=== PATIENT | male | born 1965 | race Caucasian/White ===

== ENCOUNTER 2016-04-23 09:14 | Emergency (ER) ==
[2016-04-23 09:14] VITALS: BMI 24.6
[2016-04-23 09:18] VITALS: BP 129/82; TEMP 96.9
--- NOTE | 2016-04-23 09:39 | ED.PDOC ---
General ED Provider: Dr. TERESA OTERO Chief Complaint: Fall Stated Complaint: right knee pain Time Seen by Physician: 09:14 (blunt trauma right knee 1 day ago ) Mode of Arrival: Walk-In Information Source: Patient Exam Limitations: No limitations Nursing and Triage Documentation Reviewed and Agree: Yes Musculoskeletal Complaint Exam - Knee Pain Complaint/Exam Mechanism of Injury: Reports: Trauma Onset/Duration: fall 1 day ago Symptoms Are: Still present Onset of Pain: Reports: Immediate Initial Severity: Moderate Current Severity: Moderate Character: Reports: Aching Alleviating: Reports: Rest, Position Aggravating: Reports: Movement, Weight bearing Associated Signs and Symptoms: Denies: Swelling, Redness, Bruising, Fever, Weakness, Numbness, Tingling Able to Bear Weight: Yes Gout Risk Factors: Reports: >40 years old Knee Findings: Absent: Swelling, Ecchymosis, Abnormal contour Tenderness: Present: Pre-patellar Marquis Test Positive: No Shaun Test Positive: No Differential Diagnoses: Closed Fracture Review of Systems - Review Of Systems Constitutional: Reports: No symptoms Eyes: Reports: No symptoms Ears, Nose, Mouth, Throat: Reports: No symptoms Respiratory: Reports: No symptoms Cardiac: Reports: No symptoms GI: Reports: No symptoms : Reports: No symptoms Musculoskeletal: Reports: Joint pain (right knee pain) Skin: Reports: No symptoms Neurological: Reports: No symptoms Endocrine: Reports: No symptoms Hematologic/Lymphatic: Reports: No symptoms All Other Systems: Reviewed and Negative Past Medical History - Past Medical History Previously Healthy: Yes Endocrine: Reports: None Cardiovascular: Reports: None Respiratory: Reports: None Hematological: Reports: None Gastrointestinal: Reports: None Genitourinary: Reports: None Neuro/Psych: Reports: None Musculoskeletal: Reports: None Cancer: Reports: None Other Pertinent Past Medical History: sx KIDNEY, BACK, RIGHT HAND X 5, - Surgical History General Surgical History: Reports: None - Family History Family History: Reports: Unknown - Social History Smoking Status: Current every day smoker Hx Substance Use: No Alcohol Screening: None - Immunizations Tetanus Shot up to Date: Yes Physical Exam - Physical Exam Appearance: Well-appearing, No pain distress, Well-nourished Eyes: LUNA, EOMI, Conjunctiva clear ENT: Ears normal, Nose normal, Oropharynx normal Respiratory: Airway patent, Breath sounds clear, Breath sounds equal, Respirations nonlabored Cardiovascular: RRR, Pulses normal, No rub, No murmur GI/: Soft, Nontender, No masses, Bowel sounds normal, No Organomegaly Musculoskeletal: Normal strength, ROM intact, No edema, No calf tenderness Skin: Warm, Dry, Normal color Neurological: Sensation intact, Motor intact, Reflexes intact, Cranial nerves intact, Alert, Oriented Psychiatric: Affect appropriate, Mood appropriate Critical Care Note - Critical Care Note Total Time (mins): 0 Course - Course Orders, Labs, Meds: Orders Category Date Time Status KNEE, RIGHT 4 VIEWS Stat RADS 04/23/16 09:36 Ordered Vital Signs: Temp Pulse Resp BP Pulse Ox 04/23/16 09:14 96.9 F L 100 H 20 129/82 96 Departure - Departure Time of Disposition: 11:00 Disposition: HOME SELF-CARE Discharge Problem: Knee pain Qualifiers: Laterality: right Chronicity: acute Qualifier Code: (M25.561) Pain in right knee Instructions: Arthralgia (ED), Knee Pain (ED) Condition: Good Pt referred to PMD for follow-up: No Additional Instructions: Please call your Family Physician as soon as possible to schedule a follow-up appointment. Allergies/Adverse Reactions: Allergies oxycodone HCl [From Percocet] Adverse Reaction (Verified 11/07/15 19:58) Penicillins Adverse Reaction (Verified 11/07/15 19:58) propoxyphene napsylate [From Darvocet-N 100] Adverse Reaction (Verified 19:58) Home Medications: Ambulatory Orders Metformin HCl 500 mg PO BID 06/08/13
--- NOTE | 2016-04-23 10:05 | DI ---
EXAM: Views of the right knee HISTORY: Pain TECHNIQUE: AP lateral, oblique and sunrise views of the right knee were obtained. FINDINGS: No acute fractures are seen. The joint spaces are normal. The patella is seen in good p osition. There is no joint effusion. IMPRESSION: No acute abnormalities are seen within the right knee.
== END 2016-04-23 10:14 | disposition home or self-care (01) ==
LOC: ED 09:14
DX: M25.561 Pain in right knee (principal); W22.8XXA Striking against or struck by other objects, initial encounter; F17.210 Nicotine dependence, cigarettes, uncomplicated
CPT/HCPCS: 99283

== ENCOUNTER 2016-05-18 14:03 | Outpatient (CLI) ==
[2016-05-18 17:32] LABS: BASOPHILS # (AUTO) 0.1 K/uL (0-0.2); BASOPHILS % (AUTO) 0.5 % (0.0-3.0); EOSINOPHILS # (AUTO) 0.2 K/ul (0.0-0.7); EOSINOPHILS % (AUTO) 1.8 % (0.0-7.0); HEMOGLOBIN 18.4 g/dl (14.0-18.0); IMMATURE GRANULOCYTE % (AUTO) 0.2 % (0.0-5.0); LYMPHOCYTES # (AUTO) 1.9 K/uL (0.60-3.4); LYMPHOCYTES % (AUTO) 18.8 (10.0-50.0); MEAN CORPUSCULAR HEMOGLOBIN 31.8 pg (27.0-31.0); MEAN CORPUSCULAR HGB CONC 34.7 (31.8-35.4); MEAN CORPUSCULAR VOLUME 91.5 fl (80.0-94.0); MONOCYTES # (AUTO) 0.5 K/uL (0.4-2.0); MONOCYTES % (AUTO) 5.2 (0-10); NEUTROPHILS # (AUTO) 7.3 K/ul (2.0-6.9); NEUTROPHILS % (AUTO) 73.5; PLATELET COUNT 194 10^3/uL (140-440); RED BLOOD COUNT 5.79 10^6/ul (4.70-6.10); WHITE BLOOD COUNT 9.92 K/ul (4.2-10.2)
[2016-05-18 17:59] LABS: ALBUMIN 4.5 g/dL (3.4-5.0); ALBUMIN/GLOBULIN RATIO 1.29; ANION GAP 17.5; BILIRUBIN,TOTAL 0.61 mg/dL (0.00-1.20); BUN/CREATININE RATIO 15.9; CHOL/HDL RATIO 3.8 (4.5-6.4); CREATININE 0.88 mg/dL (0.60-1.10); POTASSIUM 3.5 mmol/L (3.5-5.1)
== END 2016-05-18 14:04 | disposition home or self-care (01) ==
LOC: LAB 14:03
PROVIDERS: ATTEND Nurse Practitioner Family
DX: E78.5 Hyperlipidemia, unspecified (principal); E11.9 Type 2 diabetes mellitus without complications
CPT/HCPCS: 36415; 80053; 80061; 83036; 85025

== ENCOUNTER 2016-08-01 13:11 | Outpatient (CLI) ==
--- NOTE | 2016-08-01 16:34 | US ---
EXAM: Bilateral venous duplex with venous insufficiency testing. HISTORY: Lower extremity edema and swelling, tenderness, pain times 9 months. History of diabetic neuropathy and cold feet.. TECHNIQUE: Bilateral venous duplex , with mapping, measurement and reflux testing of the bilateral greater and small saphenous veins. FINDINGS: The bilateral common femoral, profunda femoral, femoral and popliteal veins demonstrate n ormal compression, augmentation and normal flow on color Doppler. There is no evidence of DVT. The right greater saphenous vein at its origin, proximal thigh, midthigh, distal thigh, proximal maria dolores f, midcalf and distal calf measure: 0.6, 0.6, 0.3, 0.3, 0.4, 0.3, 0.3 centimeters in diameter resp ectively . There is no sonographically detected venous reflux in the greater saphenous vein . The right small saphenous vein at its origin, proximal calf, midcalf and distal calf measures: 0.2, 0.3, 0.3, 0.1 centimeters in diameter respectively. There is no sonographically detected reflux i n the right small saphenous vein. The left greater saphenous vein at its origin, proximal thigh, midthigh, distal thigh and proximal c snf measure: 0.5, 0.4, 0.3, 0.4, 0.2, 0.2, 0.2 centimeters in diameter respectively. There is no so nographically detected reflux in the left greater saphenous vein. The left small saphenous vein at its origin, proximal calf, midcalf and distal calf measure: 0.4, 0. 2, 0.2, 0.2 centimeters in diameter respectively. There is no sonographically detected reflux in t he left small saphenous vein. IMPRESSION: 1. No deep venous thrombosis of the bilateral lower extremities. 2. Bilateral greater saphenous veins are within normal limits of size. No sonographically detected reflux was identified on this exam. 3. Bilateral small saphenous veins are within normal limits of size. No sonographically detected re flux was identified on this exam.
== END 2016-08-01 13:12 | disposition home or self-care (01) ==
LOC: RAD 13:11
PROVIDERS: ATTEND Nurse Practitioner Family
DX: G60.9 Hereditary and idiopathic neuropathy, unspecified (principal)

== ENCOUNTER 2016-10-20 15:33 | Outpatient (CLI) ==
[2016-10-20 16:21] LABS: BASOPHILS # (AUTO) 0.1 K/uL (0-0.2); BASOPHILS % (AUTO) 0.7 % (0.0-3.0); EOSINOPHILS # (AUTO) 0.2 K/ul (0.0-0.7); EOSINOPHILS % (AUTO) 2.2 % (0.0-7.0); HEMATOCRIT 42.5 % (42.0-52.0); HEMOGLOBIN 14.8 g/dl (14.0-18.0); IMMATURE GRANULOCYTE % (AUTO) 0.1 % (0.0-5.0); LYMPHOCYTES # (AUTO) 1.7 K/uL (0.60-3.4); LYMPHOCYTES % (AUTO) 24.7 (10.0-50.0); MEAN CORPUSCULAR HGB CONC 34.8 (31.8-35.4); MEAN CORPUSCULAR VOLUME 88.9 fl (80.0-94.0); MONOCYTES # (AUTO) 0.4 K/uL (0.4-2.0); MONOCYTES % (AUTO) 5.8 (0-10); NEUTROPHILS # (AUTO) 4.6 K/ul (2.0-6.9); NEUTROPHILS % (AUTO) 66.5; PLATELET COUNT 276 10^3/uL (140-440); RED BLOOD COUNT 4.78 10^6/ul (4.70-6.10); WHITE BLOOD COUNT 6.93 K/ul (4.2-10.2)
[2016-10-20 16:44] LABS: ALBUMIN 3.7 g/dL (3.4-5.0); ALBUMIN/GLOBULIN RATIO 1.19; BILIRUBIN,TOTAL 0.47 mg/dL (0.00-1.20); BUN/CREATININE RATIO 14.81; CHOL/HDL RATIO 2.8 (4.5-6.4); CREATININE 0.81 mg/dL (0.60-1.10); TOTAL PROTEIN 6.8 g/dL (6.4-8.2)
== END 2016-10-20 15:34 | disposition home or self-care (01) ==
LOC: LAB 15:33
PROVIDERS: ATTEND Nurse Practitioner Family
DX: E78.5 Hyperlipidemia, unspecified (principal); E11.9 Type 2 diabetes mellitus without complications; F41.8 Other specified anxiety disorders; G60.9 Hereditary and idiopathic neuropathy, unspecified; Z12.5 Encounter for screening for malignant neoplasm of prostate
CPT/HCPCS: 36415; 80053; 80061; 83036; 85025

== ENCOUNTER 2017-02-27 13:23 | Outpatient (CLI) ==
[2017-02-27 13:44] LABS: ALBUMIN 3.9 g/dL (3.4-5.0); ALBUMIN/GLOBULIN RATIO 1.15; ANION GAP 15.8; BILIRUBIN,TOTAL 0.35 mg/dL (0.00-1.20); BUN/CREATININE RATIO 14.45; CALCIUM 9.8 mg/dL (8.2-10.2); CHOL/HDL RATIO 2.9 (4.5-6.4); CREATININE 0.83 mg/dL (0.60-1.10); POTASSIUM 4.8 mmol/L (3.5-5.1); TOTAL PROTEIN 7.3 g/dL (6.4-8.2)
== END 2017-02-27 13:24 | disposition home or self-care (01) ==
LOC: LAB 13:23
PROVIDERS: ATTEND Nurse Practitioner Family
DX: E78.5 Hyperlipidemia, unspecified (principal); E11.9 Type 2 diabetes mellitus without complications; F41.8 Other specified anxiety disorders; N52.9 Male erectile dysfunction, unspecified
CPT/HCPCS: 36415; 80053; 80061; 83036; 84402

== ENCOUNTER 2017-07-17 11:16 | Outpatient (CLI) | payer OTHER | END 2017-07-17 11:17 | disposition home or self-care (01) | LOC: RHC-LAB 11:16 | PROVIDERS: ATTEND Emergency Medicine | DX: L02.811 Cutaneous abscess of head [any part, except face] (principal); E11.9 Type 2 diabetes mellitus without complications; E78.5 Hyperlipidemia, unspecified; G60.9 Hereditary and idiopathic neuropathy, unspecified | CPT/HCPCS: 36415; 80053; 80061; 83036; 84443; 85025; 87070 ==

== ENCOUNTER 2017-07-20 00:06 | Inpatient (IN) ==
[2017-07-20 00:47] VITALS: BMI 22.1
[2017-07-20] MEDS ORDERED: VISTARIL INJ IM PRN (01:55)
[2017-07-20] MEDS ORDERED: TYLENOL PO PRN (01:55)
[2017-07-20] MEDS ORDERED: ATROPINE SULFATE PFS IVP PRN (01:55)
[2017-07-20] MEDS ORDERED: NITROSTAT SL PRN (01:55)
[2017-07-20] MEDS: HUMULIN R SUBCUT PRN ×4 (05:46→20:39)
[2017-07-20] MEDS ORDERED: ERYTHROMYCIN ETHYLSUCCINATE PO SCH (09:00)
[2017-07-20] MEDS ORDERED: NON-FORMULARY MEDICATION (Dulaglutide [Trulicity] 0.75 MG) SUBCUT SCH (09:00)
[2017-07-20] MEDS ORDERED: NON-FORMULARY MEDICATION (Metformin Hcl [Metformin Hcl] 1,000 MG) PO SCH (09:00)
[2017-07-20] MEDS ORDERED: VANCOMYCIN 1 GM in SODIUM CHLORIDE 250 ML IV SCH (09:00)
[2017-07-20] MEDS: NEURONTIN PO SCH ×2 (09:16→20:32)
[2017-07-20] MEDS: GLUCOPHAGE PO SCH ×2 (09:16→17:15)
[2017-07-20] MEDS: KLONOPIN PO SCH (09:16)
[2017-07-20] MEDS: ASPIRIN EC PO SCH (09:16)
[2017-07-20] MEDS: NORCO 7.5-325 PO SCH ×2 (09:28→20:32)
[2017-07-20] MEDS: LANTUS SUBCUT SCH ×2 (09:29→20:32)
[2017-07-20] MEDS: VANCOMYCIN 1 GM in SODIUM CHLORIDE 250 ML IV SCH ×2 (11:13→20:34)
[2017-07-20] MEDS: ROCEPHIN 1 GM in SODIUM CHLORIDE 50 ML IV SCH (11:14)
--- NOTE | 2017-07-20 11:25 | DI ---
EXAM: Single frontal view of the chest HISTORY: Cough. COMPARISON: CT chest 02/15/[address] chest 11/07/2015 FINDINGS: Cardiomediastinal silhouette is normal. There is no pneumothorax or pleural effusion. The re is no consolidation, nodule or mass. Osseous structures are unremarkable. IMPRESSION: No acute cardiopulmonary process.
[2017-07-21] MEDS: HUMULIN R SUBCUT PRN ×4 (05:49→20:26)
[2017-07-21] MEDS: KLONOPIN PO SCH (09:40)
[2017-07-21] MEDS: GLUCOPHAGE PO SCH ×2 (09:41→17:24)
[2017-07-21] MEDS: ASPIRIN EC PO SCH (09:41)
[2017-07-21] MEDS: NORCO 7.5-325 PO SCH ×2 (09:41→20:17)
[2017-07-21] MEDS: NEURONTIN PO SCH ×2 (09:41→20:17)
[2017-07-21] MEDS: VANCOMYCIN 1 GM in SODIUM CHLORIDE 250 ML IV SCH ×2 (10:22→20:17)
[2017-07-21] MEDS: ROCEPHIN 1 GM in SODIUM CHLORIDE 50 ML IV SCH (13:18)
[2017-07-21] MEDS: LANTUS SUBCUT SCH (20:17)
[2017-07-21] MEDS: MORPHINE 4 MG/ML VIAL IVP PRN (21:22)
[2017-07-22] MEDS: HUMULIN R SUBCUT PRN ×3 (06:15→17:38)
[2017-07-22] MEDS: ROCEPHIN 1 GM in SODIUM CHLORIDE 50 ML IV SCH (09:33)
[2017-07-22] MEDS: GLUCOPHAGE PO SCH ×2 (09:33→16:49)
[2017-07-22] MEDS: ASPIRIN EC PO SCH (09:33)
[2017-07-22] MEDS: VANCOMYCIN 1 GM in SODIUM CHLORIDE 250 ML IV SCH ×2 (09:34→21:09)
[2017-07-22] MEDS: NORCO 7.5-325 PO SCH ×2 (09:34→21:10)
[2017-07-22] MEDS: KLONOPIN PO SCH (09:34)
[2017-07-22] MEDS: NEURONTIN PO SCH ×2 (09:34→21:10)
--- NOTE | 2017-07-22 09:50 | CT ---
EXAM: CT of the head without contrast History: Scalp abscess. Comparison: Head CT 06/13/2008 Technique: Multiplanar CT images through the head were obtained without the administration of IV con trast Findings: The visualized paranasal sinuses and mastoid air cells are clear in general. No acute maria dolores varial abnormalities. 7 cm x 1.6 cm area of subcutaneous edema involving the left posterior scalp. E valuation for abscess is limited due to the lack of contrast administration. Intracranially the ventricular and cisternal spaces are normal in size, shape and configuration for a patient of this age. No dominant mass or midline shift. No acute intracranial hemorrhage or abnorm al extraaxial fluid collections. Impression: 1. No acute intracranial process. 2. Posterior left scalp subcutaneous edema or phlegmonous change. Evaluation for a discrete abscess is limited due to the lack of contrast administration.
[2017-07-22] MEDS: MORPHINE 4 MG/ML VIAL IVP PRN (13:30)
[2017-07-22] MEDS: LANTUS SUBCUT SCH (21:12)
[2017-07-23] MEDS ORDERED: MORPHINE 4 MG/ML SYRINGE ONE (06:09)
[2017-07-23] MEDS: HUMULIN R SUBCUT PRN ×4 (06:16→21:17)
[2017-07-23] MEDS: KLONOPIN PO SCH (08:28)
[2017-07-23] MEDS: GLUCOPHAGE PO SCH ×2 (08:28→17:18)
[2017-07-23] MEDS: NORCO 7.5-325 PO SCH ×2 (08:28→21:17)
[2017-07-23] MEDS: NEURONTIN PO SCH ×2 (08:28→21:17)
[2017-07-23] MEDS: ASPIRIN EC PO SCH (08:28)
[2017-07-23] MEDS: VANCOMYCIN 1 GM in SODIUM CHLORIDE 250 ML IV SCH (10:08)
[2017-07-23] MEDS: VANCOMYCIN 1.25 GM in SODIUM CHLORIDE 250 ML IV SCH ×2 (10:09→21:16)
[2017-07-23] MEDS: MORPHINE 4 MG/ML VIAL IVP PRN (13:08)
--- NOTE | 2017-07-23 15:36 | PN ---
DATE OF SERVICE: 07/22/17 SUBJECTIVE: The patient was admitted with left sided scalp abscess. The patient's wound is draining puss. It did grow MRSA. The patient is getting the Vancomycin and the Rocephin. REVIEW OF SYSTEMS: CONSTITUTIONAL: No fever, no chills. HEENT: Normal. ENDOCRINE: No weight gain, no weight loss. CVS: No angina symptoms. No CHF symptoms. No palpitations. No atypical chest pain for CAD. No shortness of breath. No PND, no orthopnea. RESPIRATORY: No cough, no hemoptysis. GI: No nausea, no vomiting. No abdominal pain. : No hematuria. No polyuria. MUSCULOSKELETAL: No joint swelling. PSYCHIATRIC: Not anxious. No depression. No suicidal thoughts. No homicidal thoughts. SKIN: Intact. No rash. PHYSICAL EXAMINATION: GENERAL: The patient is laying in the bed and not in any distress. HEENT: Normocephalic, atraumatic. Left side of the scalp wound in draining the red to pussy/yellow looking drainage. Very tender to touch. NECK: Supple. No JVD, no carotid bruit. No lymphadenopathy. LUNGS: Clear to auscultation. No rales or rhonchi. HEART: S1, S2 normal. No S3. No murmur, gallop or regurgitation. ABDOMEN: Soft, nontender. Bowel sounds active. No rigidity. No rebound or guarding. No CVA tenderness. EXTREMITIES: No pedal edema. No clubbing or cyanosis MUSCULOSKELETAL: No joint swelling. NEUROLOGIC: Awake, alert, oriented times three. No focal deficit. LYMPHATIC: No lymph nodes palpable. SKIN: Intact. LABS: WBC 10.85, hgb 15.0, hct 43.6, plt count 326, Sodium 134, potassium 4.3, chloride 98, bicarb 25, BUN 20, creatinine 0.82 and glucose 406. 243 sugars, 291 sugars. He is on the Lantus 10 units. ASSESSMENT: 1. Left occipital scalp abscess, MRSA positive. 2. Diabetes uncontrolled with A1c 11.4 3. Noncompliance 4. Hypertension 5. 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 History of right nephrectomy 1984. PLAN: 1. Increase the Lantus to 14 units 2. Accu-checks with coverage 3. Will get a U/A 4. Urine drug screen 5. Continue Vancomycin 6. Stop the Rocephin 7. Daily I&O's 8. Out of bed to chair activity as tolerated. 9. Morphine PRN for the pain. TIME SPENT: More than 35 minutes MTDD
--- NOTE | 2017-07-23 15:47 | PN ---
DATE OF SERVICE: 07/21/17 SUBJECTIVE: The patient was admitted with left occipital abscess and uncontrolled diabetes. The patient being started on the insulin Levemir. Sugars are 215, 264 and 269. The patient is up and about walking. Still the left abscess wound is draining puss. The wound did grow staph aureus. REVIEW OF SYSTEMS: CONSTITUTIONAL: No fever, no chills. HEENT: Normal. ENDOCRINE: No weight gain, no weight loss. CVS: No angina symptoms. No CHF symptoms. No palpitations. No atypical chest pain for CAD. No shortness of breath. No PND, no orthopnea. RESPIRATORY: No cough, no hemoptysis. GI: No nausea, no vomiting. No abdominal pain. : No hematuria. No polyuria. MUSCULOSKELETAL: No joint swelling. PSYCHIATRIC: Not anxious. No depression. No suicidal thoughts. No homicidal thoughts. SKIN: Intact. No rash. PHYSICAL EXAMINATION: V/S: blood pressure 101/65, respiratory rate 16, heart rate 89, temperature 98.3 with saturation is 96%. HEENT: Normocephalic, atraumatic. Mucosa dry. Left occipital wound swelling and drainage is present. Tender to touch. NECK: Supple. No JVD, no carotid bruit. No lymphadenopathy. LUNGS: Clear to auscultation. No rales or rhonchi. HEART: S1, S2 normal. No S3. No murmur, gallop or regurgitation. ABDOMEN: Soft, nontender. Bowel sounds active. No rigidity. No rebound or guarding. No CVA tenderness. EXTREMITIES: No pedal edema. No clubbing or cyanosis MUSCULOSKELETAL: No joint swelling. NEUROLOGIC: Awake, alert, oriented times three. No focal deficit. LYMPHATIC: No lymph nodes palpable. SKIN: Intact. LABS: WBC 10.85, hgb 15.0, hct 43.6, plt count 326, sodium 134, potassium 4.3, chloride 98, bicarb 25, BUN 20, creatinine 0.82. ASSESSMENT: 1. Left occipital abscess 2. Diabetes, uncontrolled with 11.4 A1c 3. Hypertension 4. Dyslipidemia 5. Osteoarthritis 6. DJD spine with L4-5 fusion in 2002 7. Substance use, occasional marijuana PLAN: 1. Continue the Rocephin and Vancomycin 2. Demerol for the pain 3. Out of bed to chair 4. Accu-checks with coverage TIME SPENT: More than 35 minutes MTDD
[2017-07-23] MEDS: LANTUS SUBCUT SCH (21:16)
[2017-07-24] MEDS: HUMULIN R SUBCUT PRN ×2 (06:15→11:33)
[2017-07-24] MEDS: VANCOMYCIN 1.25 GM in SODIUM CHLORIDE 250 ML IV SCH (08:24)
[2017-07-24] MEDS: GLUCOPHAGE PO SCH (08:24)
[2017-07-24] MEDS: KLONOPIN PO SCH (08:25)
[2017-07-24] MEDS: ASPIRIN EC PO SCH (08:25)
[2017-07-24] MEDS: NORCO 7.5-325 PO SCH (08:25)
[2017-07-24] MEDS: NEURONTIN PO SCH (08:25)
[2017-07-24 10:22] VITALS: BP 105/60; TEMP 98.1
[2017-07-24] MEDS ORDERED: TORADOL IVP PRN (10:28)
--- NOTE | 2017-07-24 13:59 | PN ---
DATE OF SERVICE: 07/23/17 SUBJECTIVE: Hgb 13.5, ESR negative. CT of the head done which shows posterior left scalp subcutaneous edema or phlegmonous change. Evaluate for the discrete abscess is limited due to the lack of contrast administration with no reaction on the bone. The area size was one 7cm x1.6cm. REVIEW OF SYSTEMS: CONSTITUTIONAL: No fever, no chills. HEENT: Normal. ENDOCRINE: No weight gain, no weight loss. CVS: No angina symptoms. No CHF symptoms. No palpitations. No atypical chest pain for CAD. No shortness of breath. No PND, no orthopnea. RESPIRATORY: No cough, no hemoptysis. GI: No nausea, no vomiting. No abdominal pain. : No hematuria. No polyuria. MUSCULOSKELETAL: No joint swelling. PSYCHIATRIC: Not anxious. No depression. No suicidal thoughts. No homicidal thoughts. SKIN: Intact. No rash. PHYSICAL EXAMINATION: HEENT: Normocephalic, atraumatic. Scalp abscess still draining blood to yellow looking puss. Tender to touch and warm to touch. NECK: Supple. No JVD, no carotid bruit. No lymphadenopathy. LUNGS: Clear to auscultation. No rales or rhonchi. HEART: S1, S2 normal. No S3. No murmur, gallop or regurgitation. ABDOMEN: Soft, nontender. Bowel sounds active. No rigidity. No rebound or guarding. No CVA tenderness. EXTREMITIES: No pedal edema. No clubbing or cyanosis MUSCULOSKELETAL: No joint swelling. NEUROLOGIC: Awake, alert, oriented times three. No focal deficit. LYMPHATIC: No lymph nodes palpable. SKIN: Intact. LABS: Sodium 134, potassium 4.4, chloride 99, bicarb 30, BUN 18, creatinine 0.73 and glucose 318. WBC 8.61, hgb 13.5, hct 39.7, plt count 252. ASSESSMENT: 1. Left sided scalp abscess 2. Uncontrolled diabetes with A1c 11 3. Hypertension 4. DJD spine 5. Noncompliance with medication PLAN: 1. Continue the Vancomycin 2. Levemir 14 units daily 3. Accu-checks with coverage 4. Morphine PRN for the pain TIME SPENT: More than 35 minutes MTDD
--- NOTE | 2017-07-25 14:28 | DS ---
DATE OF SERVICE: 07/24/17 FINAL DIAGNOSIS: 1. LEFT OCCIPITAL, LEFT PAREITAL SCALP ABSCESS 2. DIABETES MELLITUS, UNCONTROLLED 3. HYPERTENSION 4. DYSLIPIDEMIA 5. MEDICATION NONCOMPLIANCE 6. RIGHT NEPHRECTOMY 7. L4-L5 FUSION IN 2002 8. OCCASIONAL MARIJUANA USE DISCHARGE INSTRUCTIONS: 1. Discharge the patient home. 2. Followup appointment with Dr. Whitlock at the [facility] on at 1 p.m. 3. Monitor blood sugars before meals and at bedtime. Keep a log of the numbers and bring this to your follow up appointment for Dr. Whitlock to review. 4. Keep the scalp abscess clean and dry. Use soap and water to cleanse the area as needed. 5. Accu-Cheks with coverage. 6. Increase hydration. MEDICATIONS AT DISCHARGE: Metformin Klonopin Neurontin Hydrocodone NEW PRESCRIPTIONS: Lantus (Glargine) insulin, administer 14 units subcutaneously daily at bedtime Bactrim DS 800/160 mg take one tablet by mouth twice daily for 7 days Trulicity for 5 more days DIET INSTRUCTIONS: Consistent Carbs; Cardiac; 1800 ADA ACTIVITY: Get plenty of rest at home. Gradually increase your activity level according to your toleration. No work until released by physician. SMOKING: Current every day smoker DISEASE SPECIFIC EDUCATION: Scalp abscess Risk of osteomyelitis Skin hygiene and wound care discussed, verbalized understanding HOSPITAL COURSE: This is a 52-year-old male who came to the office with left-sided scalp abscess. It was drained at [facility]. The patient was not taking the Bactrim which was given at [facility]. He came to the office and a lot of pus was draining. I did drain almost 10 cc pus from the wound. I got the blood work which showed white count 11,000, sugar 471. At that time, the patient was advised to be admitted. The patient came back to the hospital after two days, got admitted to the hospital, started on the IV antibiotic, Rocephin and Vancomycin. Accu-Cheks with the coverage was gone. Sugars were 294, 331, started on Lantus 10 units with coverage. Wound cultures grew Staph Aureus, MSSA so Rocephin was stopped. Continued with the Vancomycin. The patient was complaining of pain so Morphine was given. Gradually, the patient's sugar was again increased up to 200 to 250 so Lantus insulin was made to 14 units. With the given treatment, the patient was feeling better, up and about walking. Sugars under control. The wound is becoming dry and meanwhile ESR was done which was 5. CT of the head done did not show any osteolytic lesions on the scalp area. At that time, the patient was discharged home. Strictly advised to continue to monitor the blood sugars. Followup at the [facility] within 4 to 5 days. TIME SPENT: More than 60 minutes today LARA
== END 2017-07-24 15:00 | disposition home or self-care (01) | DRG 603 ==
LOC: MEDSURG B 00:06
PROVIDERS: ADMIT Emergency Medicine; ATTEND Emergency Medicine
DX: L02.811 Cutaneous abscess of head [any part, except face] (principal); E11.65 Type 2 diabetes mellitus with hyperglycemia; I10 Essential (primary) hypertension; E78.5 Hyperlipidemia, unspecified; T37.0X6A Underdosing of sulfonamides, initial encounter; F12.90 Cannabis use, unspecified, uncomplicated; M47.9 Spondylosis, unspecified; B95.61 Methicillin susceptible Staphylococcus aureus infection as the cause of diseases classified elsewhere; Z16.11 Resistance to penicillins; Z16.29 Resistance to other single specified antibiotic; Z79.84 Long term (current) use of oral hypoglycemic drugs; Z79.891 Long term (current) use of opiate analgesic; Z90.5 Acquired absence of kidney; Z98.1 Arthrodesis status
CPT/HCPCS: 36415; 80053; 80202; 80306; 81001; 82550; 82962; 84484; 85025; 85651; 87070; 87081; 87186; 93005; 93010; 97802

== ENCOUNTER 2017-07-31 15:03 | Outpatient (CLI) | END 2017-07-31 15:04 | disposition home or self-care (01) | LOC: LAB 15:03 | PROVIDERS: ATTEND Emergency Medicine | DX: E11.9 Type 2 diabetes mellitus without complications (principal); E78.5 Hyperlipidemia, unspecified | CPT/HCPCS: 36415; 80053; 85025 ==

== ENCOUNTER 2017-08-30 15:59 | Inpatient (IN) | payer OTHER ==
[2017-08-30 16:12] VITALS: BMI 23.6
--- NOTE | 2017-08-30 16:48 | ED.PDOC ---
General ED Provider: Dr. ALY ZAFAR Chief Complaint: Syncope Stated Complaint: Patient states was at Dr Whitlock office at which time he "passed out" striking his head on floor. Had brief LOC and upon arrival by EMS was alert and pt was not in acute distress. He states does not recall episode and he was at the office for follow up hospital stay and recent discharge from this hospital. Complains he has had headache weakness and diarrhea last 3 days and has had this persistent headache.According to Nursing triage patient will respond verbally then fall back to sleep. Currently answers questions appropriately. Time Seen by Physician: 16:50 Mode of Arrival: Ambulance Information Source: Patient, EMT Exam Limitations: Clinical condition Primary Care Provider: MEDINA LAROSE Referred to ED by: PCP Nursing and Triage Documentation Reviewed and Agree: Yes Reviewed sepsis parameters & appropriate labs ordered?: Yes System Inflammatory Response Syndrome: Not Applicable Sepsis Protocol: For patient's 13 years and over: Temp is 96.8 and below OR 101 and greater Pulse >90 BPM Resp >20/minute Acutely Altered Mental Status Are patient's symptoms suggestive of a new infection, such as: -Pneumonia -Skin, Soft Tissue -Endocarditis -UTI -Bone, Joint Infection -Implantable Device -Acute Abdominal Infection -Wound Infection -Meningitis -Blood Stream Catheter Infection -Unknown System Inflammatory Response Syndrome: Not Applicable Review of Systems - Review Of Systems Constitutional: Reports: No symptoms, Malaise, Weakness Eyes: Reports: No symptoms Ears, Nose, Mouth, Throat: Reports: No symptoms Respiratory: Reports: No symptoms Cardiac: Reports: No symptoms, Syncope GI: Reports: No symptoms : Reports: No symptoms Musculoskeletal: Reports: No symptoms Skin: Reports: No symptoms Neurological: Reports: No symptoms, Weakness, Other (confusion ) Endocrine: Reports: No symptoms Hematologic/Lymphatic: Reports: No symptoms All Other Systems: Reviewed and Negative Past Medical History - Past Medical History Previously Healthy: Yes Endocrine: Reports: None Cardiovascular: Reports: None Respiratory: Reports: None Hematological: Reports: None Gastrointestinal: Reports: None Genitourinary: Reports: None Neuro/Psych: Reports: None Musculoskeletal: Reports: None Cancer: Reports: None Other Pertinent Past Medical History: sx KIDNEY, BACK, RIGHT HAND X 5, - Surgical History General Surgical History: Reports: None - Family History Family History: Reports: Unknown - Social History Smoking Status: Current every day smoker, Heavy tobacco smoker Hx Substance Use: Yes Alcohol Screening: None Physical Exam - Physical Exam Appearance: Ill-appearing Ill-appearing: Moderate Pain Distress: Mild Eyes: LUNA, EOMI, Conjunctiva clear ENT: Ears normal, Nose normal, Oropharynx normal Respiratory: Airway patent, Breath sounds clear, Breath sounds equal, Respirations nonlabored Cardiovascular: RRR, Pulses normal, No rub, No murmur GI/: Soft, Nontender, No masses, Bowel sounds normal, No Organomegaly Musculoskeletal: Normal strength, ROM intact, No edema, No calf tenderness Skin: Warm, Dry, Normal color Neurological: Sensation intact, Motor intact, Cranial nerves intact, Alert, Oriented Psychiatric: Affect appropriate (flattened affect ), Mood appropriate Interpretation - Radiology Interpretation Radiology Interpretation By: Radiologist Radiology Results: No acute changes Exam Interpreted: CT Scan Critical Care Note - Critical Care Note Total Time (mins): 60 (Monitoring neuro and cardiac status) Course - Course Hematology/Chemistry: 08/30/17 17:25 08/30/17 17:25 Orders, Labs, Meds: Lab Review 08/30/17 08/30/17 08/30/17 16:56 17:25 17:25 WBC 8.15 RBC 4.60 L Hgb 14.2 Hct 42.1 MCV 91.5 MCH 30.9 MCHC 33.7 RDW Coeff of Steffany 13.2 Plt Count 235 Immature Gran % (Auto) 0.2 Neut % (Auto) 72.5 Lymph % (Auto) 19.5 [place] % (Auto) 5.0 Eos % (Auto) 2.3 Baso % (Auto) 0.5 Immature Gran # (Auto) 0.0 Neut # (Auto) 5.9 Lymph # (Auto) 1.6 [place] # (Auto) 0.4 Eos # (Auto) 0.2 Baso # (Auto) 0.0 Puncture Site Rbrach O2 Saturation 96.0 ABG pH 7.411 ABG pCO2 40.3 ABG pO2 78.0 L ABG HCO3 25.6 ABG Total CO2 27 ABG Base Excess 1 FiO2 % 21.0 Sodium 140 Potassium 4.2 Chloride 106 Carbon Dioxide 24 Anion Gap 14.2 BUN 19 H Creatinine 0.96 Estimated GFR (MDRD) 82.00 BUN/Creatinine Ratio 19.79 Glucose 309 H Lactic Acid Calcium 9.0 Magnesium 1.9 Total Bilirubin 0.5 AST 10 L ALT 17 Alkaline Phosphatase 121 Troponin I < 0.0100 Total Protein 6.5 Albumin 3.3 L Globulin 3.2 Albumin/Globulin Ratio 1.03 08/30/17 17:25 WBC RBC Hgb Hct MCV MCH MCHC RDW Coeff of Steffany Plt Count Immature Gran % (Auto) Neut % (Auto) Lymph % (Auto) [place] % (Auto) Eos % (Auto) Baso % (Auto) Immature Gran # (Auto) Neut # (Auto) Lymph # (Auto) [place] # (Auto) Eos # (Auto) Baso # (Auto) Puncture Site O2 Saturation ABG pH ABG pCO2 ABG pO2 ABG HCO3 ABG Total CO2 ABG Base Excess FiO2 % Sodium Potassium Chloride Carbon Dioxide Anion Gap BUN Creatinine Estimated GFR (MDRD) BUN/Creatinine Ratio Glucose Lactic Acid 17.4 Calcium Magnesium Total Bilirubin AST ALT Alkaline Phosphatase Troponin I Total Protein Albumin Globulin Albumin/Globulin Ratio Orders Category Date Time Status ADMIT PATIENT INPATIENT .TO [facility] (MONITORED BED) ADMISSION 08/30/17 18: 27 Active ABG DRAW REQUEST Stat CARDIO 08/30/17 16:58 Completed TELEMETRY MONITORING TELE CARE 08/30/17 18:28 Active ABG Stat LAB 08/30/17 16:56 Completed BLOOD CULTURE (ED ONLY) Stat LAB 08/30/17 17:25 Received CBC W/ AUTO DIFF Stat LAB 08/30/17 17:25 Completed COMPREHENSIVE METABOLIC PANEL Stat LAB 08/30/17 17:25 Completed LACTIC ACID Stat LAB 08/30/17 17:25 Completed MAGNESIUM Stat LAB 08/30/17 17:25 Completed TROPONIN I Stat LAB 08/30/17 17:25 Completed UA [URINALYSIS C & S IF INDICATED] Stat LAB 08/30/17 16:57 Uncollected URINE DRUG SCREEN (RAPID FOR ED) [DRUG SCREEN, URINE, LAB 08/30/17 16:57 Uncollected RAPID] Stat CT CERVICAL SPINE W/O CONTRAST Stat RADS 08/30/17 17:[address] CHEST W/O CONTRAST Stat RADS 08/30/17 16:[address] HEAD W/O CONTRAST Stat RADS 08/30/17 16:57 Completed Vital Signs: Temp Pulse Resp BP Pulse Ox 08/30/17 18:18 111/64 08/30/17 17:47 84 98 08/30/17 16:07 96.9 F L 89 16 100/68 97 TAM Risk Score TAM Risk Score: Risk Score Odds of by 30D 0 0.1 (0.1-0.2) 1 0.3 (0.2-0.3) 2 0.4 (0.3-0.5) 3 0.7 (0.6-0.9) 4 1.2 (1.0-1.5) 5 2.2 (1.9-2.6) 6 3.0 (2.5-3.6) 7 4.8 (3.8-6.1) Departure - Departure Time of Disposition: 18:40 Disposition: ADMITTED INPATIENT Discharge Problem: Syncope, Type II diabetes mellitus Condition: Fair Pt referred to PMD for follow-up: Yes IPMP verified?: No Allergies/Adverse Reactions: Allergies oxycodone HCl [From Percocet] Adverse Reaction (Verified 08/30/17 16:14) Penicillins Adverse Reaction (Verified 08/30/17 16:14) pt states no allergy to PCN propoxyphene napsylate [From Darvocet-N 100] Adverse Reaction (Verified 16:14) Home Medications: Ambulatory Orders Clonazepam [Klonopin] 0.5 mg PO DAILY 06/19/17 Gabapentin [Neurontin] 100 mg PO BID 07/20/17 Insulin Glargine,Hum.rec.anlog [Lantus] 14 unit SUBCUT BEDTIME #1 ml 07/24/17 Sulfamethoxazole/Trimethoprim [Bactrim Ds 800/160 mg] 1 tab PO Q12HR #14 tablet 07/24/17 Disposition Discussed With: Patient, Other (Dr Whitlock) Neurological Complaint Exam - Syncope/Near Syncope Complaint/Exam Onset/Duration: today Symptoms Are: Resolved Episodes Lasting: Seconds Number of Episodes: 1 Episodes Witnessed: Yes Loss of Consciousness: Yes Associated Head Trauma: Yes Activity at Onset: With exertion Aggravating: None Alleviating: Reports: None Associated Signs and Symptoms: Reports: Lightheadedness, Dizziness, Weakness, Headache (for 3 days) Cardiac Risk Factors: Reports: Hypertension, Diabetes, Elevated lipids GI Bleed Risk Factors: Reports: None Dysrhythmia Risk Factors: Reports: >45 years old Related Surgical History: Denies: None JVD Present: No Carotid Bruit Present: No Nystagmus Present: No Gag Reflex Present: Yes Meningeal Signs Positive: No Focal Weakness: Present: None Focal Sensory Loss: Present: None Babinski Sign: Negative Right, Negative Left Differential Diagnoses: Medication Reaction, Vasovagal Episode Quality Indicator For Non-Traumatic Chest Pain/Syncope: EKG Performed
--- NOTE | 2017-08-30 18:05 | CT ---
EXAM: CT cervical spine without contrast. HISTORY: Fall COMPARISON: none TECHNIQUE: Serial axial images of the cervical spine were obtained from the skull base through the l marie apices without contrast. These were viewed in multiple planes. FINDINGS: Vertebral bodies demonstrate disc space narrowing and osteophyte formation at C5-C6 with a nterior posterior disc osteophytes. It there is no pain pressuring fracture or subluxation. The facet s and posterior processes are unremarkable. The odontoid process is unremarkable. C1 ring is intact . Limited views of the soft tissues are unremarkable. Broad-based disc bulge and osteophyte at C5-C6 wi th severe left and moderate right neural foraminal narrowing. IMPRESSION: 1. No acute compression fracture or subluxation. 2. Degenerative disease with broad-based disc bulge at C5-C6 with severe left and moderate right faina ral foraminal narrowing.
--- NOTE | 2017-08-30 18:07 | CT ---
EXAM: CT head without contrast 08/30/2017. Sagittal and coronal reformatted images obtained HISTORY: Head injury COMPARISON: 07/22/2017 FINDINGS: There is no evidence of intracranial hemorrhage. The midline is maintained. There is no h ydrocephalus. Generalized atrophy and chronic small vessel ischemic changes. Small right basal ganglia infarct. This appears stable and chronic. No cerebellar tonsillar ectopia. Evaluation of the calvarium shows no fracture. The mastoid air cells are normally pneumatized. IMPRESSION: No acute intracranial abnormality. Stable chronic findings. No acute interval change.
--- NOTE | 2017-08-30 18:14 | CT ---
EXAM: CT chest without contrast HISTORY: Chest pain post fall COMPARISON: Chest CT 02/15/2016 and 11/07/2015 TECHNIQUE: Serial axial images of the chest were obtained from the lung apices to the upper abdomen without contrast. These were viewed in multiple planes. FINDINGS: The thyroid is normal. The visualized vessels are unremarkable without aneurysm or stenos is. The heart is normal in size without pericardial effusion. There are no pathologically enlarged mediastinal or hilar lymph nodes. There is no pneumothorax or effusion. There is scattered emphysema. There is mild lower lobe airway thickening. Airways are patent. There is a 0.4 cm ground-glass nodule right lower lobe on image 38. The osseous structures are unremarkable. Limited views of the soft tissues in the upper abdomen are u nremarkable. IMPRESSION: 1. No acute cardiopulmonary process, fracture or acute injury. 2. Ground-glass 0.4 cm nodule right lower lobe may be postinflammatory. Follow-up in 6 months is re commended.
[2017-08-30] MEDS ORDERED: TYLENOL PO PRN (18:39)
[2017-08-30] MEDS ORDERED: HUMALOG SUBCUT STA (18:43)
[2017-08-30] MEDS ORDERED: NORCO 7.5-325 PO SCH (21:00)
[2017-08-30] MEDS ORDERED: NON-FORMULARY MEDICATION (Metformin Hcl [Metformin Hcl] 1,000 MG) PO SCH (21:00)
[2017-08-30] MEDS ORDERED: KLONOPIN PO SCH (21:00)
[2017-08-30] MEDS ORDERED: GLUCOPHAGE ONE (21:06)
[2017-08-30] MEDS: NEURONTIN PO SCH (21:09)
[2017-08-30] MEDS: LANTUS SUBCUT SCH (21:10)
[2017-08-30] MEDS: NORCO 7.5-325 PO SCH (21:59)
[2017-08-30] MEDS: SODIUM CHLORIDE 1,000 ML IV SCH (23:44)
[2017-08-31] MEDS ORDERED: DECADRON 4 MG/ML SDV IVP STA (08:43)
[2017-08-31] MEDS: NORCO 7.5-325 PO SCH ×2 (09:13→20:31)
[2017-08-31] MEDS: NEURONTIN PO SCH ×2 (09:13→20:31)
[2017-08-31] MEDS: GLUCOPHAGE PO SCH ×2 (09:13→17:13)
[2017-08-31] MEDS: SODIUM CHLORIDE 1,000 ML IV SCH (12:34)
[2017-08-31] MEDS ORDERED: KLONOPIN PO SCH (21:00)
[2017-08-31] MEDS: LANTUS SUBCUT SCH (21:30)
[2017-08-31] MEDS ORDERED: ZITHROMAX PO STA (22:25)
[2017-08-31] MEDS ORDERED: CITRATE OF MAGNESIA PO STA (22:34)
[2017-08-31] MEDS: PREDNISONE PO SCH (23:33)
[2017-09-01] MEDS: SODIUM CHLORIDE 1,000 ML IV SCH (02:10)
[2017-09-01] MEDS ORDERED: DECADRON 4 MG/ML SDV IVP SCH (09:00)
[2017-09-01] MEDS ORDERED: TORADOL IVP SCH (09:00)
[2017-09-01] MEDS ORDERED: COLACE PO PRN (09:00)
[2017-09-01] MEDS ORDERED: ZITHROMAX PO SCH (09:00)
[2017-09-01] MEDS: GLUCOPHAGE PO SCH ×2 (09:03→16:54)
[2017-09-01] MEDS: PREDNISONE PO SCH ×2 (09:04→16:55)
[2017-09-01] MEDS: NORCO 7.5-325 PO SCH (09:04)
[2017-09-01] MEDS: NEURONTIN PO SCH (09:04)
[2017-09-01] MEDS ORDERED: HUMULIN R SUBCUT ONE (13:15)
[2017-09-01 13:46] VITALS: BP 121/78; TEMP 97.5
[2017-09-01] MEDS ORDERED: LANTUS SUBCUT SCH (21:00)
--- NOTE | 2017-09-03 09:59 | ECHO2D ---
Date of Exam: 09/01/17 Ordering Physician: DR. MEDINA MILLER Room #: [id number] Reason for Echo: SYNCOPE M-Mode Normal Adult Results LV Dimensions Normal Adult Results AoV Opening excursions >1.6 >1.6 LVEDD-base- 3.5-5.8 5.0 Ao root dimensions 2.0-3.7 3.2 LVESD-base- 3.1-4.6 L. Atrium dimensions 1.9-3.8 3.3 Post. Wall thickness 0.8-1.1 1.2 IV septum (thickness) 0.7-1.2 1.2 Post. Wall excursion 0.72-1.3 NORMAL Septal motion NORMAL Systolic motion R. Ventricular cavity 1.5-2.0 3.0 LVEF 60% 50% Paradoxical septal wall motion NORMAL 2-D : ENLARGED RIGHT VENTRICULAR CAVITY--NORMAL LEFT VENTRICLE SIZE--NORMAL LEFT VENTRICULAR CONTRACTILITY--NO EFFUSION, NO THROMBUS M-MODE: MV: NORMAL AV: NORMAL TV: NORMAL PV: CHAMBER SIZE: ENLARGED RIGHT VENTRICLE CAVITY WALL MOTION: NORMAL PERICARDIUM: NORMAL INTERPRETATION: 1. BORDERLINE LEFT VENTRICULAR HYPERTROPHY 2. ENLARGED RIGHT VENTRICLE CAVITY 3. NORMAL VALVES 4. NORMAL LEFT VENTRICLE SIZE 5. NORMAL LEFT VENTRICULAR CONTRACTILITY MTDD
--- NOTE | 2017-09-03 10:00 | HP ---
DATE OF SERVICE: 08/30/17 CHIEF COMPLAINT: Syncope HISTORY OF PRESENT ILLNESS: This is a 52 year old male who came to the [facility] for the headache, started for 3-4 days with coughing, congestion and shortness of breath. Came to the [facility] waiting in the waiting area and he fell down and hit the floor loss consciousness for seconds and awake. I did examine the patient in the [facility]. Blood sugar was 126, blood pressure 114/62 and saturation was 95. At that time the patient was sent to the emergency room for the evaluation and seen by Dr. Allen in the Emergency Room. Initial WBC was normal. ABG showed the pH 7.411, pCo2 40.3, pO2 78, potassium was normal, BUN was slightly elevated at 99 and sugars was 309. CT head is negative. CT neck is fine and CT chest is normal. At that time the patient was admitted to the hospital for syncopal episode, uncontrolled diabetes, questionable substance use most likely the Meth. REVIEW OF SYSTEMS: CONSTITUTIONAL: No fever, no chills. Weakness, tiredness. HEENT: Normal. Headache. ENDOCRINE: No weight gain; no weight loss. CVS: No chest pain. No PND, no orthopnea. No shortness of breath. No PND, no orthopnea. Status post syncopal episode. RESPIRATORY: Cough, Congestion. No hemoptysis. GI: No nausea, no vomiting. No abdominal pain. No melena. : No hematuria. No polyuria. MUSCULOSKELETAL: No joint swelling. PSYCHIATRIC: Not anxious. No depression. No suicidal thoughts. No homicidal thoughts. SKIN: Intact, no open lesions. PAST MEDICAL HISTORY: Hypertension Dyslipidemia Diabetes mellitus Depression Anxiety Substance abuse disorder PAST SURGICAL HISTORY: L4 and L5 fusion 2003 Appendectomy Right nephrectomy PERSONAL HISTORY: The patient does smokes and does use the substance mostly meth use. FAMILY HISTORY: High blood pressure MEDICATIONS: Metformin Klonopin Neurontin Lantus Hydrocodone ALLERGIES: Oxycodone Penicillin Propoxyphene PHYSICAL EXAMINATION: V/S: Blood pressure 100/58, respiratory rate 16, heart rate 89, temperature 96.9 and saturation 97. GENERAL: Sick looking man lying in the bed, not in any distress. HEENT: Atraumatic, normocephalic. No scleral icterus. Pallor positive. Mucosa dry. Pupils are equal and reactive. NECK: Supple. No JVD, no bruit. No lymphadenopathy. No thyromegaly. HEART: S1, S2 normal. No murmur. No cyanosis or clubbing. No ascites. LUNGS: Clear to auscultation. No rales or rhonchi. ABDOMEN: Soft, nontender. Bowel sounds are active. No CVA tenderness. No rigidity or guarding. EXTREMITIES: No pedal edema. No cyanosis or clubbing MUSCULOSKELETAL: Normal joints, no swelling. NEUROLOGIC: The patient is awake and alert. Holding the head complaining that he is having the headache. SKIN: Intact; no open lesions. LYMPHATIC: No lymph nodes palpable. LABS: Sodium 146, potassium 4.2, chloride 106, bicarb 26, BUN 19, creatinine 0.98, glucose 309, WBC 8.15, hgb 14.2, hct 42.1, plt count 235. ASSESSMENT: 1. Syncopal episode status post fall with head injury 2. Uncontrolled diabetes 3. Substance use, Amphetamine and methamphetamine 4. Diabetes 5. Hypertension 6. Dyslipidemia PLAN: 1. Admit patient to the regular floor 2. CBC and CMP today and daily 3. IV fluids 4. Continue home medication 5. Accu-checks with coverage. TIME SPENT: MORE THAN 70 minutes MTDD
--- NOTE | 2017-09-03 10:43 | PN ---
DATE OF SERVICE: 08/31/17 SUBJECTIVE: The patient was admitted with syncopal episode. The patient is still having some headache. Did discuss about the positive drug screen of methamphetamine. The patient refuses to taking it. Sugars are 238 and 240. REVIEW OF SYSTEMS: CONSTITUTIONAL: No fever, no chills. HEENT: Normal. ENDOCRINE: No weight gain, no weight loss. CVS: No angina symptoms. No CHF symptoms. No palpitations. No atypical chest pain for CAD. No shortness of breath. No PND, no orthopnea. RESPIRATORY: No cough, no hemoptysis. GI: No nausea, no vomiting. No abdominal pain. : No hematuria. No polyuria. MUSCULOSKELETAL: No joint swelling. PSYCHIATRIC: Not anxious. No depression. No suicidal thoughts. No homicidal thoughts. SKIN: Intact. No rash. PHYSICAL EXAMINATION: V/S: Blood pressure 100/68, respiratory rate 89, heart rate 97, temperature 96.9 with saturation 97. HEENT: Normocephalic, atraumatic. Mucosa dry. NECK: Supple. No JVD, no carotid bruit. No lymphadenopathy. LUNGS: Clear to auscultation. No rales or rhonchi. HEART: S1, S2 normal. No S3. No murmur, gallop or regurgitation. ABDOMEN: Soft, nontender. Bowel sounds active. No rigidity. No rebound or guarding. No CVA tenderness. EXTREMITIES: No cyanosis, clubbing or pedal edema. MUSCULOSKELETAL: No joint swelling. NEUROLOGIC: Awake, alert, oriented times three. No focal deficit. LYMPHATIC: No lymph nodes palpable. SKIN: Intact. LABS: Sodium 138, potassium 4.0, chloride 104, bicarb 23, BUN 20, creatinine 0.75, glucose 154, WBC 8.96, hgb 14.3, hct 42.0, plt count 240. ASSESSMENT: 1. Substance abuse disorder, Amphetamine and Methamphetamine 2. Status post fall with head injury 3. Syncopal episode most likely from the drugs 4. Diabetes 5. Hypertension 6. DJD spine PLAN: 1. IV fluids 2. Accu-checks with coverage 3. Regular diet 4. Out of bed to chair 5. Activity as tolerated TIME SPENT: More than 35 minutes MTDD
--- NOTE | 2017-09-03 10:58 | PN ---
DATE OF SERVICE: 09/01/17 SUBJECTIVE: The patient was admitted with syncopal episode and uncontrolled diabetes. Complains about the joint pains and swelling in the hands otherwise no more episode. He is active, up and about walking. REVIEW OF SYSTEMS: CONSTITUTIONAL: No fever, no chills. HEENT: Normal. ENDOCRINE: No weight gain, no weight loss. CVS: No angina symptoms. No CHF symptoms. No palpitations. No atypical chest pain for CAD. No shortness of breath. No PND, no orthopnea. RESPIRATORY: No cough, no hemoptysis. GI: No nausea, no vomiting. No abdominal pain. : No hematuria. No polyuria. MUSCULOSKELETAL: No joint swelling. PSYCHIATRIC: Not anxious. No depression. No suicidal thoughts. No homicidal thoughts. SKIN: Intact. No rash. PHYSICAL EXAMINATION: V/S: Blood pressure 107/90, respiratory rate 22, heart rate 96, temperature 98.2. HEENT: Normocephalic, atraumatic. Mucosa dry. NECK: Supple. No JVD, no carotid bruit. No lymphadenopathy. LUNGS: Clear to auscultation. No rales or rhonchi. HEART: S1, S2 normal. No S3. No murmur, gallop or regurgitation. ABDOMEN: Soft, nontender. Bowel sounds active. No rigidity. No rebound or guarding. No CVA tenderness. EXTREMITIES: No cyanosis, clubbing or pedal edema. Hands are slightly swollen and the small joints in the hands. MUSCULOSKELETAL: No joint swelling. NEUROLOGIC: Awake, alert, oriented times three. No focal deficit. LYMPHATIC: No lymph nodes palpable. SKIN: Intact. LABS: WBC 8.76, hgb 12.3, hct 76.0, plt count 227, sodium 137, potassium 3.9, chloride 102, bicarb 27, BUN 18, creatinine 0.76, glucose 260. ASSESSMENT: 1. Syncopal episode, most likely drug related, Methamphetamine positive 2. Uncontrolled diabetes 3. Hypertension 4. Dyslipidemia PLAN: 1. Will do echocardiogram 2. Out of bed to chair activity as tolerated 3. If the patient is doing fine, maybe discharged by evening. TIME SPENT: More than 35 minutes MTDD
--- NOTE | 2017-09-03 11:24 | DS ---
DATE OF SERVICE: 09/01/17 FINAL DIAGNOSIS: 1. Syncopal episode, most likely vasovagal and drug related methamphetamine and amphetamine 2. Diabetes uncontrolled 3. COPD exacerbation 4. Bronchitis 5. Hypertension 6. Osteoarthritis 7. DJD spine 8. Substance use disorder 9. L4 and L5 fusion DISCHARGE INSTRUCTIONS: Discharge the patient home. Continue the rest of the home medications. Followup in the [facility] within 5-7 days. MEDICATIONS AT DISCHARGE: Hydrocodone Metformin Klonopin Neurontin Lantus, dose changed to 18 units Prednisone NEW PRESCRIPTIONS: Prednisone Z-pack DIET INSTRUCTIONS: Cardiac and healthy ACTIVITY: As much as tolerated. DISEASE SPECIFIC EDUCATION: Syncopal COPD exacerbation Drug use Risk for the heart been discussed and verbalized understanding. HOSPITAL COURSE: Michael Sauceda who came to the office with the complaint of headache, coughing , congestion and shortness of breath was waiting in the waiting room and fell and hit the head. He was sent to the emergency room for the evaluation. CT of the head, neck and CT chest was negative. At that time the patient was admitted to the hospital because of the positive for the drug screening; amphetamine and methamphetamine. Thought the syncopal episode is maybe from the amphetamine use and headache is from that. CT chest was also negative. He was started on the IV fluids and Solu-Medrol. Gradually the patient started feeling better. Still coughing and congested and Decadron was given which did help him and was started on the Z-pack and Prednisone. The patient was up and about walking and did not have any more syncopal episode. We did get the echocardiogram which showed the enlarged left ventricle, normal ejection fraction. As patient was doing good and up and about walking and did not have complications during the hospital stay he is being discharged back home. TIME SPENT: MORE THAN 65 MINUTES [facility]
== END 2017-09-01 17:32 | disposition home health service (06) | DRG 312 ==
LOC: ED 15:59 → MEDSURG A 18:36
PROVIDERS: ADMIT Emergency Medicine; ATTEND Emergency Medicine
DX: R55 Syncope and collapse (principal); J44.1 Chronic obstructive pulmonary disease with (acute) exacerbation; J44.0 Chronic obstructive pulmonary disease with (acute) lower respiratory infection; S09.90XA Unspecified injury of head, initial encounter; E11.65 Type 2 diabetes mellitus with hyperglycemia; J20.9 Acute bronchitis, unspecified; W19.XXXA Unspecified fall, initial encounter; F15.90 Other stimulant use, unspecified, uncomplicated; R51 Headache; R53.1 Weakness; R19.7 Diarrhea, unspecified; I10 Essential (primary) hypertension; I51.7 Cardiomegaly; M19.90 Unspecified osteoarthritis, unspecified site; M47.9 Spondylosis, unspecified; F17.210 Nicotine dependence, cigarettes, uncomplicated; Z79.84 Long term (current) use of oral hypoglycemic drugs; Z79.899 Other long term (current) drug therapy; Y92.531 Health care provider office as the place of occurrence of the external cause
CPT/HCPCS: 36415; 80053; 80306; 81001; 82803; 82962; 83605; 83735; 84484; 85025; 87040; 87081; 96360; 96361; 96372; 99284; 99285

== ENCOUNTER 2017-11-02 16:01 | Outpatient (CLI) | END 2017-11-02 16:02 | disposition home or self-care (01) | LOC: RHC-LAB 16:01 | PROVIDERS: ATTEND Emergency Medicine | DX: E11.9 Type 2 diabetes mellitus without complications (principal); I10 Essential (primary) hypertension; K21.9 Gastro-esophageal reflux disease without esophagitis; E78.5 Hyperlipidemia, unspecified | CPT/HCPCS: 36415; 80061; 83036; 84443 ==

== ENCOUNTER 2018-01-09 16:51 | Emergency (ER) | payer OTHER ==
[2018-01-09 16:55] VITALS: BP 100/75; TEMP 97.9; BMI 22.6
--- NOTE | 2018-01-09 17:46 | ED.PDOC ---
General ED Provider: Dr. BOAZ ROMERO Chief Complaint: Hand Pain/Injury Stated Complaint: Infection L middle finger Time Seen by Physician: 17:35 Mode of Arrival: Walk-In Information Source: Patient Exam Limitations: No limitations Primary Care Provider: JOSE MIGUEL SUERO Nursing and Triage Documentation Reviewed and Agree: Yes Does patient meet sepsis criteria?: No System Inflammatory Response Syndrome: Not Applicable Sepsis Protocol: For patient's 13 years and over: Temp is 96.8 and below OR 101 and greater Pulse >90 BPM Resp >20/minute Acutely Altered Mental Status Are patient's symptoms suggestive of a new infection, such as: -Pneumonia -Skin, Soft Tissue -Endocarditis -UTI -Bone, Joint Infection -Implantable Device -Acute Abdominal Infection -Wound Infection -Meningitis -Blood Stream Catheter Infection -Unknown Review of Systems - Review Of Systems Constitutional: Reports: No symptoms Musculoskeletal: Reports: Joint pain (L middle finger grossly swollen and painful) All Other Systems: Reviewed and Negative Past Medical History - Past Medical History Previously Healthy: Yes Endocrine: Reports: None Cardiovascular: Reports: None Respiratory: Reports: None Hematological: Reports: None Gastrointestinal: Reports: None Genitourinary: Reports: None Neuro/Psych: Reports: None Musculoskeletal: Reports: None Cancer: Reports: None Other Pertinent Past Medical History: sx KIDNEY, BACK, RIGHT HAND X 5, - Surgical History General Surgical History: Reports: None - Family History Family History: Reports: Unknown - Social History Smoking Status: Current every day smoker, Heavy tobacco smoker Hx Substance Use: Yes Alcohol Screening: None Physical Exam - Physical Exam Appearance: Well-appearing Pain Distress: Moderate (Left middle finger) Respiratory: Airway patent, Breath sounds clear Musculoskeletal: Normal strength, ROM intact (except L middle finger - obvious draining abscess and cellulitis) Interpretation - Radiology Interpretation Radiology Interpretation By: Radiologist Radiology Results: Positive Exam Interpreted: Other (Left middle finger - suspicious for osteomyelitis) Critical Care Note - Critical Care Note Total Time (mins): 30 Comments: Evaluation, review of w rays, discussion with hospitalist - plan for out patient treatment with IV antibiotics. Course - Course Orders, Labs, Meds: Orders Category Date Time Status Ceftriaxone Sodium [Rocephin] MEDS 01/09/18 18:02 Discontinued 1 gm .ROUTE .STK-MED ONE Ceftriaxone Sodium [Rocephin] 1 gm MEDS 01/09/18 17:49 Discontinued 0.9 % Sodium Chloride [Sodium Chloride] 50 ml IV ONCE FINGER(S), LEFT MIN 2V Stat RADS 01/09/18 17:47 Completed Medications Discontinued Medications Generic Name Dose Route Start Last Admin Trade Name Freq PRN Reason Stop Dose Admin Ceftriaxone Sodium 1 gm/ 50 mls @ 75 mls/hr 01/09/18 17:49 01/09/18 18:11 Sodium Chloride IV 01/09/18 18:28 75 mls/hr ONCE STA Administration Vital Signs: Temp Pulse Resp BP Pulse Ox 01/09/18 16:52 97.9 F 109 H 20 100/75 98 Departure - Departure Time of Disposition: 19:13 Disposition: HOME SELF-CARE Discharge Problem: Osteomyelitis of finger of left hand Instructions: Osteomyelitis (ED) Condition: Stable Pt referred to PMD for follow-up: Yes (outpatient IV antibiotic treatment - follow up with clinic) IPMP verified?: Yes Prescriptions: Hydrocodone Bit/Acetaminophen [[place] 7.5-325] 1 tab PO Q6HR PRN #12 tablet PRN Reason: pain Allergies/Adverse Reactions: Allergies oxycodone HCl [From Percocet] Adverse Reaction (Verified 01/09/18 16:55) Penicillins Adverse Reaction (Verified 01/09/18 16:55) pt states no allergy to PCN propoxyphene napsylate [From Darvocet-N 100] Adverse Reaction (Verified 16:55) Home Medications: Ambulatory Orders Clonazepam [Klonopin] 0.5 mg PO DAILY 06/19/17 Hydrocodone Bit/Acetaminophen [[place] 7.5-325] 1 tab PO Q6HR PRN #12 tablet 01/09
[2018-01-09] MEDS ORDERED: ROCEPHIN 1 GM in SODIUM CHLORIDE 50 ML IV STA (17:49)
[2018-01-09] MEDS ORDERED: ROCEPHIN ONE (18:02)
--- NOTE | 2018-01-09 18:09 | DI ---
EXAM: Three views of the left fingers. History: Infection of the left fingers. Findings: Osseous lucency with erosions involving the distal phalanx of the third digit. There is s evere soft tissue swelling of the third digit. No dislocation. Impression: Findings highly suspicious for osteomyelitis involving the distal phalanx of the third d igit.
[2018-01-09] MEDS ORDERED: NORCO 7.5-325 PO STA (19:22)
== END 2018-01-09 19:40 | disposition home or self-care (01) ==
LOC: ED 16:51
DX: M86.9 Osteomyelitis, unspecified (principal); F17.210 Nicotine dependence, cigarettes, uncomplicated
CPT/HCPCS: 36415; 85025; 96365; 99283

== ENCOUNTER 2018-01-13 14:05 | Emergency (ER) | payer OTHER ==
[2018-01-13 14:12] VITALS: BP 104/73; TEMP 97.6; BMI 22.5
--- NOTE | 2018-01-13 14:25 | ED.PDOC ---
General ED Provider: Dr. ALY NORTON-ER Chief Complaint: Finger Pain/Injury Stated Complaint: dot got infection in the bone Time Seen by Physician: 14:23 Mode of Arrival: Walk-In Information Source: Patient Exam Limitations: No limitations Primary Care Provider: YVROSE BENNETT Nursing and Triage Documentation Reviewed and Agree: Yes Does patient meet sepsis criteria?: No System Inflammatory Response Syndrome: Not Applicable Sepsis Protocol: For patient's 13 years and over: Temp is 96.8 and below OR 101 and greater Pulse >90 BPM Resp >20/minute Acutely Altered Mental Status Are patient's symptoms suggestive of a new infection, such as: -Pneumonia -Skin, Soft Tissue -Endocarditis -UTI -Bone, Joint Infection -Implantable Device -Acute Abdominal Infection -Wound Infection -Meningitis -Blood Stream Catheter Infection -Unknown Skin Complaint Exam - Skin/Soft Tissue Complaint/Exam Onset/Duration: 2 weeks Symptoms Are: Still present Timing: Constant Initial Severity: Mild Current Severity: Moderate Location: left middle finger Character: Reports: Redness, Swelling, Raised, Painful Aggravating: Reports: Touch Associated Signs and Symptoms: Reports: Chills, Drainage, Tenderness, Red streaks. Denies: Fever, Itching Related History: Reports: Foreign body Related Surgical History: Reports: None Recent Exposure to Others w/Similar Symptoms: No Skin Findings: Present: Erythema, Induration Joint Tenderness Present: No Differential Diagnoses: Abscess, Cellulitis, Foreign Body, Infection Review of Systems - Review Of Systems Constitutional: Reports: No symptoms Eyes: Reports: No symptoms Ears, Nose, Mouth, Throat: Reports: No symptoms Respiratory: Reports: No symptoms Cardiac: Reports: No symptoms GI: Reports: No symptoms : Reports: No symptoms Musculoskeletal: Reports: No symptoms Skin: Reports: Rash Neurological: Reports: No symptoms Endocrine: Reports: No symptoms Hematologic/Lymphatic: Reports: No symptoms All Other Systems: Reviewed and Negative Past Medical History - Past Medical History Previously Healthy: Yes Endocrine: Reports: None Cardiovascular: Reports: None Respiratory: Reports: None Hematological: Reports: None Gastrointestinal: Reports: None Genitourinary: Reports: None Neuro/Psych: Reports: None Musculoskeletal: Reports: None Cancer: Reports: None Other Pertinent Past Medical History: sx KIDNEY, BACK, RIGHT HAND X 5, - Surgical History General Surgical History: Reports: None - Family History Family History: Reports: Unknown - Social History Smoking Status: Current every day smoker, Heavy tobacco smoker Hx Substance Use: Yes ([facility]) Alcohol Screening: None - Immunizations Tetanus Shot up to Date: Yes Physical Exam - Physical Exam Appearance: Well-appearing, No pain distress, Well-nourished Pain Distress: Moderate Eyes: LUNA, EOMI, Conjunctiva clear ENT: Ears normal, Nose normal, Oropharynx normal Neck: Supple Respiratory: Airway patent Cardiovascular: RRR, Pulses normal, No rub, No murmur GI/: Soft, Nontender, No masses, Bowel sounds normal, No Organomegaly Musculoskeletal: Normal strength, ROM intact, No edema, No calf tenderness Skin: Warm, Dry, Normal color Neurological: Sensation intact, Motor intact, Reflexes intact, Cranial nerves intact, Alert, Oriented Psychiatric: Affect appropriate, Mood appropriate Critical Care Note - Critical Care Note Total Time (mins): 0 Course - Course Vital Signs: Temp Pulse Resp BP Pulse Ox 01/13/18 14:06 97.6 F 94 H 16 104/73 98 Departure - Departure Time of Disposition: 14:25 Disposition: HOME SELF-CARE Discharge Problem: Osteomyelitis of finger of left hand Instructions: Osteomyelitis (ED) Condition: Stable Pt referred to PMD for follow-up: No IPMP verified?: No Allergies/Adverse Reactions: Allergies oxycodone HCl [From Percocet] Adverse Reaction (Verified 01/13/18 14:14) Penicillins Adverse Reaction (Verified 01/13/18 14:14) pt states no allergy to PCN propoxyphene napsylate [From Darvocet-N 100] Adverse Reaction (Verified 14:14) Home Medications: Ambulatory Orders Hydrocodone Bit/Acetaminophen [[place] 7.5-325] 1 tab PO Q6HR PRN #12 tablet 01/09 Transfer Form Completed: Yes Disposition Discussed With: Patient, Family
== END 2018-01-13 15:04 | disposition home or self-care (01) ==
LOC: ED 14:05
DX: M86.9 Osteomyelitis, unspecified (principal); F17.210 Nicotine dependence, cigarettes, uncomplicated
CPT/HCPCS: 99283

== ENCOUNTER 2018-08-18 17:39 | Emergency (ER) ==
[2018-08-18 17:43] VITALS: BP 117/77; TEMP 97.2; BMI 22.2
--- NOTE | 2018-08-18 18:05 | ED.PDOC ---
General ED Provider: Dr. 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 He agreed tyo have his hand soaked.He sais that he does not have a time for IV.All potential risks of infection including finger loss etc were explained to him. Time Seen by Physician: 17:50 Mode of Arrival: Walk-In Information Source: Patient Exam Limitations: No limitations Nursing and Triage Documentation Reviewed and Agree: Yes Does patient meet sepsis criteria?: No System Inflammatory Response Syndrome: Not Applicable Sepsis Protocol: For patient's 13 years and over: Temp is 96.8 and below OR 101 and greater Pulse >90 BPM Resp >20/minute Acutely Altered Mental Status Are patient's symptoms suggestive of a new infection, such as: -Pneumonia -Skin, Soft Tissue -Endocarditis -UTI -Bone, Joint Infection -Implantable Device -Acute Abdominal Infection -Wound Infection -Meningitis -Blood Stream Catheter Infection -Unknown Musculoskeletal Complaint Exam - Hand/Wrist Complaint/Exam Location of Pain: Reports: Hand, Digit #4 Mechanism of Injury: Reports: Trauma Onset/Duration: 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 Symptoms Are: Still present Onset of Pain: Reports: Post accident Initial Severity: Moderate Current Severity: Moderate Location: Reports: Discrete Character: Reports: Aching Alleviating: Reports: Rest Aggravating: Reports: Movement Associated Signs and Symptoms: Reports: Redness Related History: Reports: Similar episode, Occupational injury Dominant Hand: Right Related Surgical History: Reports: Left, Hand Hand/Wrist Findings: Present: Laceration Tenderness: Present: Phalanx Differential Diagnoses: Cellulitis, Infection, Abrasion, Sprain, Tendonitis, Bursitis, Tenosynovitis Review of Systems - Review Of Systems Constitutional: Reports: No symptoms Eyes: Reports: No symptoms Ears, Nose, Mouth, Throat: Reports: No symptoms Respiratory: Reports: No symptoms Cardiac: Reports: No symptoms GI: Reports: No symptoms : Reports: No symptoms Musculoskeletal: Reports: No symptoms Skin: Reports: Lesions, Other Neurological: Reports: No symptoms Endocrine: Reports: No symptoms Hematologic/Lymphatic: Reports: No symptoms All Other Systems: Reviewed and Negative Past Medical History - Past Medical History Previously Healthy: Yes Endocrine: Reports: None Cardiovascular: Reports: None Respiratory: Reports: None Hematological: Reports: None Gastrointestinal: Reports: None Genitourinary: Reports: None Neuro/Psych: Reports: None Musculoskeletal: Reports: None Cancer: Reports: None Other Pertinent Past Medical History: sx KIDNEY, BACK, RIGHT HAND X 5, - Surgical History General Surgical History: Reports: None - Family History Family History: Reports: Unknown - Social History Smoking Status: Current every day smoker, Heavy tobacco smoker Hx Substance Use: Yes ([facility]) Alcohol Screening: None Physical Exam - Physical Exam Appearance: Well-appearing Ill-appearing: Mild Pain Distress: None Eyes: LUNA, EOMI, Conjunctiva clear ENT: Ears normal, Nose normal, Oropharynx normal Neck: Supple Respiratory: Airway patent, Breath sounds clear, Breath sounds equal Cardiovascular: RRR, Pulses normal GI/: Soft, Nontender Musculoskeletal: Normal strength, ROM intact, No edema Skin: Warm, Dry Neurological: Sensation intact, Motor intact, Reflexes intact, Alert, Oriented Psychiatric: Affect appropriate Critical Care Note - Critical Care Note Total Time (mins): 0 Course - Course Orders, Labs, Meds: Orders Category Date Time Status Dressing Change [INCISION/WOUND CARE] ONCE CARE 08/18/18 18:10 Ordered Clindamycin HCl [Cleocin] MEDS 08/18/18 18:10 Stat 300 mg PO ONCE STA Medications Discontinued Medications Generic Name Dose Route Start Last Admin Trade Name Evon PRN Reason Stop Dose Admin Clindamycin HCl 300 mg 08/18/18 18:10 08/18/18 18:17 Cleocin PO 08/18/18 18:11 300 mg ONCE STA Administration Vital Signs: Temp Pulse Resp BP Pulse Ox 08/18/18 17:39 97.2 F L 108 H 20 117/77 94 L Departure - Departure Time of Disposition: 18:22 Disposition: HOME SELF-CARE Discharge Problem: Cellulitis of head or scalp Instructions: Laceration (ED) Condition: Good Pt referred to PMD for follow-up: Yes (need PCP and hand Sx referral) IPMP verified?: No Additional Instructions: Continue Clindamycin as per Rx given x 10 days qid 300mg/ Allergies/Adverse Reactions: Allergies oxycodone HCl [From Percocet] Adverse Reaction (Verified 08/18/18 17:44) Penicillins Adverse Reaction (Verified 08/18/18 17:44) pt states no allergy to PCN propoxyphene napsylate [From Darvocet-N 100] Adverse Reaction (Verified 17:44) Disposition Discussed With: Patient
[2018-08-18] MEDS ORDERED: CLEOCIN PO STA (18:10)
== END 2018-08-18 18:36 | disposition home or self-care (01) ==
LOC: ED 17:39
DX: L02.811 Cutaneous abscess of head [any part, except face] (principal); R23.4 Changes in skin texture; Z72.0 Tobacco use; L03.811 Cellulitis of head [any part, except face]
CPT/HCPCS: 99282

== ENCOUNTER 2018-08-27 04:22 | Emergency (ER) ==
[2018-08-27 04:34] VITALS: BP 113/74; TEMP 98.5; BMI 31.1
--- NOTE | 2018-08-27 04:51 | ED.PDOC ---
General ED Provider: Dr. ALY NORTON-ER Chief Complaint: Abscess Stated Complaint: dot got this place on my scalp---its draining now Time Seen by Physician: 04:30 Mode of Arrival: Walk-In Information Source: Patient Exam Limitations: No limitations Nursing and Triage Documentation Reviewed and Agree: Yes Does patient meet sepsis criteria?: No System Inflammatory Response Syndrome: Not Applicable Sepsis Protocol: For patient's 13 years and over: Temp is 96.8 and below OR 101 and greater Pulse >90 BPM Resp >20/minute Acutely Altered Mental Status Are patient's symptoms suggestive of a new infection, such as: -Pneumonia -Skin, Soft Tissue -Endocarditis -UTI -Bone, Joint Infection -Implantable Device -Acute Abdominal Infection -Wound Infection -Meningitis -Blood Stream Catheter Infection -Unknown Skin Complaint Exam - Skin/Soft Tissue Complaint/Exam Onset/Duration: 7 days Symptoms Are: Still present Timing: Constant Initial Severity: Mild Current Severity: Mild Location: right scalp Character: Reports: Redness, Swelling, Raised, Painful Aggravating: Reports: Touch Alleviating: Reports: None Associated Signs and Symptoms: Reports: Drainage, Tenderness. Denies: Fever, Chills, Itching, Bruising Related Surgical History: Reports: None Recent Exposure to Others w/Similar Symptoms: No Skin Findings: Present: Erythema, Induration Joint Tenderness Present: No Differential Diagnoses: Abscess, MRSA Review of Systems - Review Of Systems Constitutional: Reports: No symptoms Eyes: Reports: No symptoms Ears, Nose, Mouth, Throat: Reports: No symptoms Respiratory: Reports: No symptoms Cardiac: Reports: No symptoms GI: Reports: No symptoms : Reports: No symptoms Musculoskeletal: Reports: No symptoms Skin: Reports: Lumps Neurological: Reports: No symptoms Endocrine: Reports: No symptoms Hematologic/Lymphatic: Reports: No symptoms All Other Systems: Reviewed and Negative Past Medical History - Past Medical History Previously Healthy: Yes Endocrine: Reports: None Cardiovascular: Reports: None Respiratory: Reports: None Hematological: Reports: None Gastrointestinal: Reports: None Genitourinary: Reports: None Neuro/Psych: Reports: None Musculoskeletal: Reports: None Cancer: Reports: None Other Pertinent Past Medical History: sx KIDNEY, BACK, RIGHT HAND X 5, - Surgical History General Surgical History: Reports: None - Family History Family History: Reports: Unknown - Social History Smoking Status: Current every day smoker, Heavy tobacco smoker Hx Substance Use: Yes (METH, MARIJUANA) Alcohol Screening: None - Immunizations Tetanus Shot up to Date: Yes Physical Exam - Physical Exam Appearance: Well-appearing, No pain distress, Well-nourished Pain Distress: Mild Eyes: LUNA, EOMI, Conjunctiva clear ENT: Ears normal, Nose normal, Oropharynx normal Neck: Supple Respiratory: Airway patent, Breath sounds clear, Breath sounds equal, Respirations nonlabored Cardiovascular: RRR, Pulses normal, No rub, No murmur GI/: Soft, Nontender, No masses, Bowel sounds normal, No Organomegaly Musculoskeletal: Normal strength, ROM intact, No edema, No calf tenderness Skin: Warm, Dry, Normal color Neurological: Sensation intact, Motor intact, Reflexes intact, Cranial nerves intact, Alert, Oriented Psychiatric: Affect appropriate Critical Care Note - Critical Care Note Total Time (mins): 0 Course - Course Vital Signs: Temp Pulse Resp BP Pulse Ox 08/27/18 04:23 98.5 F 101 H 20 113/74 98 Departure - Departure Time of Disposition: 04:51 Disposition: HOME SELF-CARE Discharge Problem: Abscess Instructions: Abscess (ED) Condition: Good Pt referred to PMD for follow-up: No IPMP verified?: No Additional Instructions: doxycycline 100mg q 12hrs #14---ultram 50mg q 6hrs prn pain #12---f/u with pcp to go over culture results and ensure healing Allergies/Adverse Reactions: Allergies oxycodone HCl [From Percocet] Adverse Reaction (Verified 08/27/18 04:33) "SUICIDAL THOUGHTS" Penicillins Adverse Reaction (Verified 08/27/18 04:33) Unknown pt states no allergy to PCN propoxyphene napsylate [From Darvocet-N 100] Adverse Reaction (Verified 04:33) Rash Disposition Discussed With: Patient
== END 2018-08-27 04:59 | disposition home or self-care (01) ==
LOC: ED 04:22
DX: L02.811 Cutaneous abscess of head [any part, except face] (principal); F17.210 Nicotine dependence, cigarettes, uncomplicated
CPT/HCPCS: 87070; 87186; 99283

== ENCOUNTER 2018-09-03 05:11 | Emergency (ER) ==
[2018-09-03 05:15] VITALS: BP 124/76; TEMP 98.6; BMI 22.1
--- NOTE | 2018-09-03 05:21 | ED.PDOC ---
General ED Provider: Dr. BOAZ ROMERO Chief Complaint: Wound Check Stated Complaint: Scalp wound which is getting worse - draining - on bactrim Time Seen by Physician: 05:15 Mode of Arrival: Walk-In Information Source: Patient Exam Limitations: No limitations Nursing and Triage Documentation Reviewed and Agree: Yes Does patient meet sepsis criteria?: No System Inflammatory Response Syndrome: Not Applicable Sepsis Protocol: For patient's 13 years and over: Temp is 96.8 and below OR 101 and greater Pulse >90 BPM Resp >20/minute Acutely Altered Mental Status Are patient's symptoms suggestive of a new infection, such as: -Pneumonia -Skin, Soft Tissue -Endocarditis -UTI -Bone, Joint Infection -Implantable Device -Acute Abdominal Infection -Wound Infection -Meningitis -Blood Stream Catheter Infection -Unknown Review of Systems - Review Of Systems Constitutional: Reports: Malaise Respiratory: Reports: No symptoms Cardiac: Reports: No symptoms Skin: Reports: Other (pain - scalp) All Other Systems: Reviewed and Negative Past Medical History - Past Medical History Previously Healthy: Yes Endocrine: Reports: None Cardiovascular: Reports: None Respiratory: Reports: None Hematological: Reports: None Gastrointestinal: Reports: None Genitourinary: Reports: None Neuro/Psych: Reports: None Musculoskeletal: Reports: None Cancer: Reports: None Other Pertinent Past Medical History: sx KIDNEY, BACK, RIGHT HAND X 5, - Surgical History General Surgical History: Reports: None - Family History Family History: Reports: Unknown - Social History Smoking Status: Current every day smoker, Heavy tobacco smoker Hx Substance Use: Yes (METH, MARIJUANA) Alcohol Screening: None - Immunizations Tetanus Shot up to Date: Yes Physical Exam - Physical Exam Appearance: Ill-appearing Ill-appearing: Moderate Pain Distress: Moderate ENT: Ears normal Respiratory: Airway patent, Breath sounds clear, Respirations nonlabored Cardiovascular: RRR, Pulses normal Musculoskeletal: Normal strength, ROM intact Skin: Warm, Dry, Normal color (Except draining abscess right posterior scalp) Critical Care Note - Critical Care Note Total Time (mins): 20 Course - Course Hematology/Chemistry: 09/03/18 05:36 09/03/18 05:36 Orders, Labs, Meds: Lab Review 09/03/18 09/03/18 05:36 05:36 WBC 8.66 RBC 4.77 Hgb 14.8 Hct 42.7 MCV 89.5 MCH 31.0 MCHC 34.7 RDW Coeff of Steffany 12.1 Plt Count 276 Immature Gran % (Auto) 0.2 Neut % (Auto) 73.1 Lymph % (Auto) 15.5 [place] % (Auto) 7.6 Eos % (Auto) 3.1 Baso % (Auto) 0.5 Immature Gran # (Auto) 0.0 Neut # (Auto) 6.3 Lymph # (Auto) 1.3 [place] # (Auto) 0.7 Eos # (Auto) 0.3 Baso # (Auto) 0.0 Sodium 132.1 L Potassium 4.15 Chloride 96.6 L Carbon Dioxide 25.3 Anion Gap 14.35 BUN 14.5 Creatinine 0.52 L Estimated GFR (MDRD) 165.00 BUN/Creatinine Ratio 27.88 Glucose 405.8 H Calcium 9.28 Total Bilirubin 0.39 AST 17.8 ALT 21.7 Alkaline Phosphatase 186.6 H Total Protein 6.68 Albumin 3.78 Globulin 2.90 Albumin/Globulin Ratio 1.30 Orders Category Date Time Status BLOOD CULTURE (ED ONLY) Stat LAB 09/03/18 05:43 Received CBC W/ AUTO DIFF Stat LAB 09/03/18 05:36 Completed CMP [COMPREHENSIVE METABOLIC PANEL] Stat LAB 09/03/18 05:36 Completed CULTURE WOUND [WOUND CULTURE] Stat LAB 09/03/18 05:25 Received Vital Signs: Temp Pulse Resp BP Pulse Ox 09/03/18 05:12 98.6 F 80 18 124/76 97 Departure - Departure Time of Disposition: 06:15 Disposition: HOME SELF-CARE Discharge Problem: Abscess Instructions: Abscess (ED) Condition: Stable Pt referred to PMD for follow-up: Yes (Call for appointment) IPMP verified?: Yes Additional Instructions: Take antibiotic and pain medication; must follow up with a primary care provider. Expect a call if the culture we obtained from the abscess drainage indicates a change of antibiotic is needed. Prescriptions: Hydrocodone Bit/Acetaminophen [[place] 7.5-325] 1 each PO Q4HR #5 tablet Cephalexin [Keflex] 500 mg PO Q8HR #30 capsule Allergies/Adverse Reactions: Allergies oxycodone HCl [From Percocet] Adverse Reaction (Verified 08/27/18 04:33) "SUICIDAL THOUGHTS" Penicillins Adverse Reaction (Verified 08/27/18 04:33) Unknown pt states no allergy to PCN propoxyphene napsylate [From Darvocet-N 100] Adverse Reaction (Verified 04:33) Rash Home Medications: Ambulatory Orders Cephalexin [Keflex] 500 mg PO Q8HR #30 capsule 09/03/18 Hydrocodone Bit/Acetaminophen [[place] 7.5-325] 1 each PO Q4HR #5 tablet 09/03/18
== END 2018-09-03 06:25 | disposition home or self-care (01) ==
LOC: ED 05:11
DX: L02.811 Cutaneous abscess of head [any part, except face] (principal); F17.210 Nicotine dependence, cigarettes, uncomplicated
CPT/HCPCS: 36415; 80053; 85025; 87040; 87070; 87186; 99283

== ENCOUNTER 2018-09-19 15:26 | Outpatient (CLI) | END 2018-09-19 15:27 | disposition home or self-care (01) | LOC: RHC-LAB 15:26 | PROVIDERS: ATTEND General Practice | DX: L03.811 Cellulitis of head [any part, except face] (principal); A49.01 Methicillin susceptible Staphylococcus aureus infection, unspecified site | CPT/HCPCS: 87070 ==

== ENCOUNTER 2018-09-19 23:40 | Inpatient (IN) ==
[2018-09-20 00:55] VITALS: BMI 21.9
[2018-09-20] MEDS: VANCOMYCIN 1 GM in SODIUM CHLORIDE 250 ML IV SCH ×3 (01:28→20:47)
[2018-09-20] MEDS ORDERED: HUMALOG SUBCUT STA (01:40)
--- NOTE | 2018-09-20 01:44 | DI ---
EXAM: PA and lateral views of the chest. HISTORY: Cough. FINDINGS: The bones are unremarkable. The cardiac silhouette and pulmonary vasculature are within n ormal limits. The costophrenic angles are clear. No infiltrate or consolidation. Impression: No acute cardiopulmonary disease.
--- NOTE | 2018-09-20 01:48 | CT ---
EXAM: CT head without contrast. HISTORY: Abscess. PROCEDURE: Contiguous axial CT images of the head without contrast with coronal and sagittal reforma ts. FINDINGS: Comparison made with CT of 08/30/2017. There is mild diffuse cerebral atrophy. The ventri cles are stable in size. The basal cisterns are normal in size and configuration. No evidence of ma ss or midline shift. No intracranial hemorrhage or evidence of large vessel infarct. No extra-axial fluid collection. There are minimal chronic small vessel ischemic changes in the white matter. The paranasal sinuses and mastoid air cells are normal in appearance. There is soft tissue swelling and edema in the posterior right parietal scalp. Impression: Soft tissue swelling and edema in the posterior right parietal scalp, consistent with a phlegmon. No discrete fluid collection or drainable abscess. Chronic small vessel ischemic changes. Diffuse cerebral atrophy.
--- NOTE | 2018-09-20 02:00 | CT ---
EXAM: CT neck without contrast. HISTORY: Abscess. PROCEDURE: Contiguous axial CT images of the neck without contrast with coronal and sagittal reforma ts. FINDINGS: The exam is limited without IV contrast. No discrete fluid collection or evidence of absce ss. The parotid glands, submandibular glands and thyroid gland are normal in appearance. The epigl ottis and prevertebral soft tissues are normal in appearance. The pharynx, larynx and visualized por tion of the trachea are normal in appearance. The lung apices are normal in appearance. There are d egenerative changes in the spine. Impression: Negative CT soft tissue neck as described.
[2018-09-20] MEDS: LACTATED RINGERS 1,000 ML IV SCH ×2 (02:06→16:58)
[2018-09-20] MEDS: HUMALOG SUBCUT SCH ×3 (08:43→16:59)
[2018-09-20] MEDS: GLUCOPHAGE PO SCH ×2 (08:43→16:58)
[2018-09-20] MEDS: NEURONTIN PO SCH ×3 (08:43→20:42)
[2018-09-20] MEDS ORDERED: NON-FORMULARY MEDICATION (Metformin Hcl [Metformin Hcl] 1,000 MG) PO SCH (09:00)
[2018-09-20] MEDS: TYLENOL PO PRN (20:42)
[2018-09-20] MEDS: LANTUS SUBCUT SCH (20:42)
[2018-09-21] MEDS: LACTATED RINGERS 1,000 ML IV SCH ×3 (02:47→13:19)
[2018-09-21] MEDS: GLUCOPHAGE PO SCH ×2 (09:00→18:43)
[2018-09-21] MEDS: NEURONTIN PO SCH ×3 (09:00→21:06)
[2018-09-21] MEDS: HUMALOG SUBCUT SCH ×3 (09:03→18:46)
[2018-09-21] MEDS: VANCOMYCIN 1 GM in SODIUM CHLORIDE 250 ML IV SCH ×2 (09:05→21:07)
[2018-09-21] MEDS: TYLENOL PO PRN (16:16)
[2018-09-21] MEDS ORDERED: LOVENOX SUBCUT SCH (20:00)
[2018-09-21] MEDS: LANTUS SUBCUT SCH (21:06)
[2018-09-22] MEDS: LACTATED RINGERS 1,000 ML IV SCH ×3 (06:51→20:19)
[2018-09-22] MEDS: HUMALOG SUBCUT SCH ×3 (08:10→17:34)
[2018-09-22] MEDS: GLUCOPHAGE PO SCH ×2 (09:36→17:33)
[2018-09-22] MEDS: NEURONTIN PO SCH ×3 (09:36→20:25)
[2018-09-22] MEDS: VANCOMYCIN 1 GM in SODIUM CHLORIDE 250 ML IV SCH ×2 (09:36→21:47)
--- NOTE | 2018-09-22 10:15 | CT ---
EXAM: CT head without contrast CLINICAL HISTORY: Headache TECHNIQUE: Multiple axial images were obtained through the brain without contrast. Sagittal and cor onal reformats were obtained. FINDINGS: Comparison is made to the exam dated 09/20/2018. Prominent ventricles, cerebral sulci, and cerebellar folia indicate atrophy. Periventricular leukoariosis is seen. No mass, mass effect, shif t of the midline, evidence of acute stroke, or extra-axial fluid or blood collections are seen. The visualized paranasal sinuses are well-aerated. The mastoid air cells are clear. The bony calvarium is intact.Soft tissue swelling and edema are seen in the posterior right parietal region in the scalp . IMPRESSION: No acute intracranial process Atrophy Small vessel disease Soft tissue swelling and edema in the posterior right parietal scalp, stable
[2018-09-22] MEDS: TYLENOL PO PRN (14:42)
[2018-09-22] MEDS: LANTUS SUBCUT SCH (20:21)
[2018-09-22] MEDS ORDERED: LOVENOX SUBCUT SCH (21:00)
[2018-09-23] MEDS: LACTATED RINGERS 1,000 ML IV SCH ×2 (06:39→12:09)
[2018-09-23] MEDS: GLUCOPHAGE PO SCH (08:00)
[2018-09-23] MEDS: HUMALOG SUBCUT SCH ×2 (08:00→13:14)
[2018-09-23] MEDS: NEURONTIN PO SCH ×2 (08:00→15:12)
[2018-09-23 13:50] VITALS: BP 121/78; TEMP 96.2
--- NOTE | 2018-09-23 14:25 | US ---
EXAM: ULTRASOUND CAROTID DUPLEX, BILATERAL HISTORY: Altered mental status FINDINGS: Tong-scale ultrasound, color Doppler and spectral analysis was performed. Velocities are in meters per second. By tong scale and color Doppler imaging, there appears to be only minimal intimal thickening and scat tered atherosclerotic plaque in both carotid systems, including the bulbs and internal carotid arteri es. RIGHT: External carotid artery peak systolic velocity: 1.09/0.16 Common carotid artery peak systolic velocity/end diastolic velocity: 0.67/0.15 Internal carotid artery peak systolic velocity: 0.81 ICA/CCA peak systolic velocity ratio: 1.2 ICA end diastolic velocity: 0.26 LEFT: External carotid artery peak systolic velocity: 0.98/0.15 Common carotid artery peak systolic velocity/end diastolic velocity: 0.62/0.17 Internal carotid artery peak systolic velocity: 0.71 ICA/CCA peak systolic velocity ratio: 1.1 ICA end diastolic velocity: 0.29 The right and left vertebral arteries were antegrade. IMPRESSION: 1. By tong scale and color Doppler imaging, there appears to be only minimal intimal thickening and scattered atherosclerotic plaque in both carotid systems, including the bulbs and internal carotid ar teries. 2. Internal carotid artery peak systolic velocities and ICA/CCA peak systolic velocity ratios indica te no hemodynamically significant stenosis bilaterally. 3. Both vertebral arteries were antegrade.
--- NOTE | 2018-09-25 14:57 | HP ---
DATE OF SERVICE: 09/19/18 CHIEF COMPLAINT: Abscess to head. HISTORY OF PRESENT ILLNESS: Mr. Sauceda is a 53-year-old patient who requests to establish care with Dr. Sanchez. He presents today for evaluation of an ongoing abscess to his right posterior scalp. He tells me today that he has been both to [facility] and [place] [facility] for treatment of the abscess to the right posterior scalp. He visited [place] [facility] on September 03, 2018. I did review the labs and the cultures. The cultures did grow out Staph Aureus. The blood cultures were negative. He was initially placed on Keflex but he reports that was changed to Bactrim after the cultures were reviewed. He did complete this prescription today. After he went to [place] he reports that the abscess continued to get larger. He went to [facility] and he tells me that he had a scan of his head completed and it became more painful and they did not incise and drain it therefore he went home and decided to incise and drain it himself. He tells me that he used a razor blade to incise and drain the abscess to his posterior scalp. It then began draining a large amount of purulent drainage. He continued to be sore. The soreness goes into his neck. He does have uncontrolled diabetes mellitus. He tells me that he is almost out of his insulin. I did review his chart. His last A1C was done in 2018. It was in the 10 % range. After further review of the medical records, it was noted that the patient had been seen several times in the last several weeks at [facility] Emergency Department for his head abscess and the first time that he was seen at the Emergency Department was on August 18, 2018. He had complaints of a small area and cellulitis to his scalp. Per Emergency Department documentation he would receive his first dose of Clindamycin in the Emergency Department. He intended to cover both his scalp and abscess and his deep fissure on the fourth digit, right hand. He had denied to accept his initial IV and IV antibiotic. He agreed to have his hand soaked. He said that he did not have time for an IV. The potential risk for an infection was explained to the patient. The patient was started on Clindamycin that ER visit. He was seen again on August 27, [address] Vinson in the Emergency Department for ongoing abscess to the right posterior scalp. He reported at that time that his abscess was draining. At that time, he was placed on Doxycycline and given Ultram for pain control and recommended to followup with his primary care provider to go over culture results. He was again seen on September 03, 2018. He had complained that the scalp wound was getting worse and draining. On the chief complaint it had reported that he was on Bactrim at that time. On discharge from that appointment he was placed on Keflex and given Harrison for pain control. This is the chronological order of the Emergency Department visits at [facility]. I am unsure exactly when he was at [facility] and we are waiting on those records and they have been requested. PAST MEDICAL HISTORY: Arthritis; Back pain; Uncontrolled diabetes mellitus type 2; Neuropathy; He reports a history of osteomyelitis; He also reports history of abscesses, incise and drainage in the past as well as a history of a scalp abscess in the past several years ago that had to be incised and drained. He also tells me that he had a injury/oral trauma in 2016 where he lost all of his teeth; He complains of chronic constipation. PAST SURGICAL HISTORY: Appendectomy; Back surgery; Blockage removed from the right kidney at age 23; Finger amputation, left middle finger due to osteomyelitis. The path returned as a gangreous necrosis and underlying acute osteomyelitis. FAMILY HISTORY: Brother with diabetes mellitus type 2. SOCIAL HISTORY: Denies alcohol use. Reports half pack of cigarettes per day. Reports recreational use of marijuana, methamphetamines and cocaine. He reports this is approximately once a month. MEDICATIONS: (CURRENT HOME) Gabapentin 100 mg p.o. three times a day Metformin 1000 mg twice a day ALLERGIES: PENICILLIN, OXYCODONE, PROPOXYPHENE. REVIEW OF SYSTEMS: CONSTITUTIONAL: He denies fever or chills. Denies nightsweats. He does report approximate 100 pound weight loss in the past year or so. HEENT: He does report an abscess to the right posterior scalp for approximately the past two weeks for which he has been on antibiotics. Denies any nasal drainage or sore throat. Denies any double vision. CARDIOVASCULAR: Denies any complaints of chest pain, irregular rhythm. Denies any orthopnea or peripheral edema. LUNGS: No reports of shortness of breath, cough or congestion. No reports of lung disease. GASTROINTESTINAL: No reports of abdominal pain, nausea, vomiting, diarrhea, constipation or blood in the stool. No reports of changes in stool consistency. GENITOURINARY: No reports of dysuria, hematuria, nocturia or urinary incontinence. MUSCULOSKELETAL: No reports of muscle pain, joint redness or swelling. He does report a history of chronic back pain. NEUROLOGIC: No reports of dizziness. No reports of fatigue. Denies any neurological deficit. PSYCHIATRIC: No reports of anxiety, depression or mood changes. ENDOCRINE: He does have a history of uncontrolled diabetes mellitus type 2. No reports of thyroid disease. Denies any increased thirst, urination or heat or cold intolerance. INTEGUMENTARY: He does have an abscess to the right posterior scalp draining copious amounts of purulent drainage. This has been ongoing for approximately two weeks. He did incise and drain this himself. PHYSICAL EXAMINATION: GENERAL: He is alert, oriented. He appears malnourished. VITAL SIGNS: In office, height 68", weight 146 lbs, BMI 22.3, temperature 97.2, pulse 104, respirations 16, blood pressure 104/71, pulse ox 99% on room air. HEENT: Pupils equal/reactive to light. Conjunctivae clear. Mucous membranes are moist. No dentures. He does have a draining abcess to his right posterior scalp approximately 6 x 6 cm. It is draining copious amounts of purulent drainage. This was cultured in the office. Redness extends downward to the right mastoid and into the neck. Swelling extends to the posterior neck. There is tenderness in the soft tissues. NECK: No JVD. No lymphadenopathy. No thyromegaly. No carotid bruits auscultated. Again there is swelling posteriorly in the soft tissues of the neck. He does have tenderness. CARDIAC: S1, S2. Regular rate and rhythm. Slightly tachycardic. No peripheral edema. LUNGS: Clear to auscultation. ABDOMEN: Soft. Bowel sounds are positive. No tenderness. No rebound tenderness. No rigidity. NEUROLOGIC: Cranial nerves 2-12 grossly intact. No neurological deficit. SKIN: Warm and dry. Again he does have a draining abscess in the right posterior scalp and this was cultured in the office. He has a cracked callous to his right middle finger that is painful. LABS AND DIAGNOSTIC TESTING: The most recent labs were done in the emergency department on 09/03/18. He had a normal white count of 8.66. Normal hemoglobin and hematocrit of 14.8 and 42.7. His sodium was 132.1, potassium 4.15. creatinine 0.52, estimated GFR 165. His alkaline phosphatase 186.6. ASSESSMENT/PLAN: 1. CELLULITIS AND ABSCESS OF THE RIGHT POSTERIOR SCALP WITH RECENT CULTURE SHOWING STAPH INFECTION. 2. DIABETES MELLITUS TYPE 2 UNCONTROLLED. 3. HISTORY OF BACK PAIN AND ARTHRITIS. 4. HISTORY OF DIABETIC NEUROPATHY. 5. HISTORY OF OSTEOMYELITIS. 6. CALLOUS TO THE RIGHT MIDDLE FINGER THAT IS PAINFUL. 7. SUBSTANCE ABUSE. 8. NONCOMPLIANCE WITH MEDICAL REGIMEN. PLAN: 1. Admit the patient inpatient. 2. We will check labs, CBC, CMP, lipids, A1C, UA. 3. Blood cultures twin site right and left, same time. 4. Chest x-ray. 5. CT soft tissues of the neck. 6. CT of the head. 7. Chest x-ray. 8. We will continue to follow the patient inpatient. 9. We will order appropriate antibiotics and he will most likely need incise and drainage of the posterior scalp. 10. Further orders and recommendations per Dr. Sanhcez. TIME SPENT: GREATER THAN 65 MINUTES MTDD
--- NOTE | 2018-09-26 10:40 | PN ---
DATE OF SERVICE: 09/20/18 SUBJECTIVE: Vital signs today; temperature 97.1, pulse 91, blood pressure 100/65, respiratory rate 20 and oxygen saturation 99% on room air. Telemetry monitoring is sinus rhythm at 94. He has been started on Insulin Lantus 20 units at bedtime and Humalog 12 units three times a day with meals. Lactated Ringers 125ml per hours. He was given stat dose of Humulog for elevated blood sugar at 2 :05 in the morning. His blood sugar on admission revealed a blood glucose of 611.7. Neurontin was also resumed. He was started on Vancomycin intervenously. Blood cultures were obtained prior to initiation of the antibiotics. Wound cultures were also obtained. Blood glucose monitoring. I discussed with the nurses that he has been sleeping most of the day today. Per lab review his CBC was within normal limits. Sodium 133.8, chloride 95.1, GFR 137.0, BUN 16.8, creatinine 0.61, LFT slightly elevated with an AST of 76.5 and Alkaline phosphatase was 200.8. His procalcitonin was negative at less than 0.05 and TSH was normal at 1.790. His hgb A1c revealed uncontrolled diabetes mellitus type 2 of greater than 14.0. Urinalysis showed 2+ glucose otherwise negative. His toxicology screen revealed positive for amphetamines and positive methamphetamines. A quantitative screen has been requested. Discussed with the nurse and she says that he has been sleeping most of the day. He reports that his head does feel some better, it is warper tender. The swelling has decreased into the neck. It is less red. There is no active drainage currently to the abscess to the right posterior scalp. Again it does remained tender but not as tender as yesterday. Not currently actively drainage. There is some drainage on the pillow however and the tenderness has decreased into the neck and into the right mastoid region. LUNG: Clear HEART: Regular rate and rhythm. LOWER EXTREMITIES: There is no lower extremity edema. ASSESSMENT: 1. Abscess to the right posterior scalp with recent cultures growing staph aureus. His current wound culture done at the office with preliminary wound culture showing heavy growth of gram positive cocci. 2. Uncontrolled diabetes mellitus type 2 with an A1c of greater than 14. He has been started on insulin and being monitored closely while inpatient. Further orders and recommendations per Dr. Sanchez. [facility]ENTER[facility]
--- NOTE | 2018-09-26 10:56 | PN ---
DATE OF SERVICE: 09/20/18 SUBJECTIVE: The patient is alert and not in any distress. He has slightly fluctuant scalp in the posterior parietal. He did incise on his own scalp according to him. I also mentioned to him about the drug screen that was positive for methamphetamine and amphetamine. He did admit to using methamphetamine. I told him that he was positive a year ago and also now. He told me that the methamphetamine relieves his pain. He had used marijuana but it does give him a high. He denies any problems effecting his mental discussion or attitude. He is using it to relieve the pain in his back. He used to work as a Diesel Fleet Mechanic and was working in [facility] when he had an accident. He claims that he is using methamphetamine to relieve the pain since his medications for pain were discontinued by Dr. Markham. I do not know the time line. I don't know when he first saw Dr. Markham. He had a presumptive positive methamphetamine use a year ago on the drug screen. His procalcitonin is normal. TSH is normal 1.790. Blood sugar was 611, A1c greater than 14. He was recorded to weight 145 pounds more than a year ago during his admission in July 2017. There is no drainable collection of fluid per CT scan of the head. We will make adjustments from day to day whether the incision and drainage will be done. LARA
--- NOTE | 2018-09-26 14:05 | PN ---
DATE OF SERVICE: 09/21/18 SUBJECTIVE: The patient is alert and oriented times four. He is complaining of headache. He claims to have a good appetite. He was given Tylenol 650mg for the headache, had it last night. The area on the scalp is still about the same as yesterday. There is not a marked protrusion. There is some fluctuance but it does not indicate a good amount of collection. Probably will do an ultrasound to see if there is any collection of fluid that is drainable. The CT scan of the head does not indicate that. The finding yesterday and today is about the same. This patient is receiving Vancomycin. Culture that was done was gram positive cocci the same as it was a year ago. The staph aureus was not methicillin resistant a year ago. This patient was receiving Vancomycin and the previous ID RACHEL sensitivity does indicate that this staph aureus was sensitive to Vancomycin. The patient's GFR initially was chronic kidney disease stage 2. LUNGS: Clear HEARTS: Audible and regular NECK: No masses, no bruit ABDOMEN: Nontender No chemistry or CBC done today. He is receiving 12 units with meals of Humalog/ insulin Lispro. Also receiving insulin Glargine, lactose 20 units SUBCU at bedtime. We will request for JEANMARIE 65 antibody and if it is positive then he is strictly a type 1. Plasma C Peptid also was requested. CBC and comprehensive metabolic panel also was put in place. Acute hepatitis panel because of elevated AST. Reason for that is not quite clear why the AST is elevated with the ALT being normal. The Alkaline phosphatase is also elevated and this was elevated a year ago. PSA was also ordered. Trying to get a reason for the elevated Alkaline phosphatase. GGTP also was requested. ABELD
--- NOTE | 2018-09-26 14:31 | PN ---
DATE OF SERVICE: 09/22/18 SUBJECTIVE: Nurse called about 8:05 in the morning with regards to Mr. Sauceda. Rebekah Lazo RN was the one that called me and told me that Mr. Sauceda is barely responsive. He doesn't squeeze her hand when informed to do so. He would hardly open his eyes. I did ask her about blood pressure, sugar level and the rest of the vital signs. I did come to the hospital as soon as I can and examined the patient. The patient indeed is not as quick to respond. He does open his eyes on command. His pupils are about 3mm in size. They are reactive. He does move all his extremities. He is complaining of some swelling of the hand but that more or less is a chronic problem. I don't see any acute edema. He is missing the third finger of the right hand. It was amputated because of infection. The patient has draining area in the right parietal. He indicated to me that he did open the area in the scalp. He went to [facility] and had been to this facility three times for the problem. He described to me the size as slightly smaller than his fist. The area is draining. A CAT Scan does indicate some edema of the scalp but no collection of drainable abscess. The patient has pain but not a headache. He was sitting on the bedside and told the nurse that he was not feeling well. He is then laid down. The same nurse and CLOTH BALER that took care of him today did yesterday. CBC is normal, therefore anemia from the dilution. He came in was 14.9 grams hgb and he is now 12.9 but the WBC is essentially the same 5,940 from 6,228 on admission. Arterial blood gasses is the same, normal pH, pCo2 92 on admission and it is 101 today, pCO2 46.3 on admission now normal was 36.7. Electrolytes are normal and his blood sugar was 272.5. His AST has returned to normal from 76.5 to 15.1 today. Alkaline phosphatase was 200 on admission and down to 146 today. Upper normal 126. CK normal, Troponin normal today. Procalcitonin the same 0.05. I did ask him if he had taken his Methamphetamine and he told him he didn't have it. Order a CT scan of the head again and I believe that I would probably enlarge the opening where it is draining. We will have him sign a consent. I did go back and see him just before dictations about 10-15 minutes and he is much more alert and responsive and claimed that he feels chilly and had been through the night. I did ask the nurse to give him a warm blanket. I still do not have the CT scan of the head report at this time. He neck always has the soreness and still it has. The CAT scan of soft tissue neck was negative on admission. HEART: Normal sinus rhythm MTDD
--- NOTE | 2018-09-27 09:06 | OP ---
DATE OF PROCEDURE: 09/22/18 INDICATIONS: 53-year-old male was admitted to the hospital because of draining abscess, right parietal posterior. He had been to the emergency room three times at [place] and one at [facility]. He claims that the abscess had gotten so big and nobody would do anything so he sterilized the site and claimed that he cut it himself. The patient was seen at the office with edematous scalp, fluctuant with draining opening at the thinner scalp. Culture was done. The patient was admitted for intravenous antibiotics since the culture previously was Staph Aureus, MRSA. The patient had been on Bactrim as an outpatient. CT scan of the head showed some edematous scalp tissue but no drainable collection. This patient had drained it himself. I advised the patient that we are going to enlarge the opening in four directions and probably remove a piece of scalp that is thin and necrotic. The patient agreed. The patient was brought to the emergency room over head light for the procedure. PREOPERATIVE DIAGNOSIS: Right parietal abscess, MRSA, draining. POSTOPERATIVE DIAGNOSIS: Same OPERATION: Cruciate incision to enlarge the opening. Packing with Iodoform gauze quarter inch. The patient in supine posture on the left lateral decubitus then prepped and draped for surgery. The hair was removed. There was another small pustule that was superior to the area of concern. The patient was advised that we are removing most of the hair around the area in order to have a better assessment of the surrounding tissue. The patient was agreeable. The area was then prepped and draped and anesthetized with 1% Xylocaine. A curved hemostat was then inserted and incisions were then made between the jaws of the hemostat. Firm tissue was noted and this appeared to be fibrous tissue of the scalp called galea. The area was irrigated with Dilaudid and Betadine followed by full strength Betadine and followed by Saline. The bleeding was controlled by pressure and after the bleeding had more or less stopped, packing of quarter inch Iodoform was inserted. Dressing was then applied using a 4 x 4 and a Latrice around the head followed by a coban. The patient tolerated the procedure well and was returned to his room in good condition. Note: The pustule that is superior and anterior to the original abscess cavity was unroofed. A small amount of drainage and culture was obtained from that area. [facility]
--- NOTE | 2018-09-27 13:10 | DS ---
DATE OF SERVICE: 09/23/18 BRIEF HISTORY OF PRESENT ILLNESS/HOSPITAL COURSE: Mr. Sauceda is a 53 [address] patient of Dr[address] Sanchez who presented to the office with complaint of abscess to his right parietal posterior scalp. He had went to several emergency departments for treatment and evaluation of this abscess on his head. He had been on multiple antibiotics for treatment of this. He ultimately did incise and drain it himself. It continued to drainage and it was very sore and tender. He decided to be seen and evaluated with Dr. Sanchez. He reported that the most recent antibiotic that he had taken prior to being seen by Bactrim. His cultures had grown out staph aureus. His blood cultures were negative, this was done at [facility] on 09/03/18. Decision was made to admit the patient intake with labs, blood cultures and a culture of the wound was taken in office. Chest x-ray and CT of the soft tissues of the neck and the CT of the head was also performed. During the hospital stay he was started on Lovenox for DVT prophylaxis. Placed on telemetry monitoring. He was placed on Vancomycin. He was also placed on insulin for his uncontrolled diabetes mellitus. LABS AND DIAGNOSTIC TESTING: WBC was normal during this admission, hgb 12.9, hct 38.2. His glucose at 272.5 09/22/18 on 09/22/18 his alkaline phosphatase was 146.8, total creatine kinase was 24.4. Pro Calcitonin was less than 0.05, on 09/20/18 his TSH was 1.790, his hgb A1c was great than 14.0. On admission his glucose was 611.7. Carotid ultrasound showed no significant stenosis bilaterally. He did have an episode of some decrease responsiveness during this hospital stay and workup was completely. Carotid ultrasound showed no significant stenosis bilaterally. A head CT done 09/22/18 due to decreased responsiveness showed no acute intracranial abnormality. It did show soft tissue swelling and edema in the posterior right parietal scalp that was stable. CT of the soft tissues of the neck showed negative for soft tissue neck. A head CT on 09/20/18 showed soft tissue and swelling in the posterior right parietal scalp consistent with Phlegmon, no discrete fluid collection or drainable abscess noted. A chest x- ray performed on 09/20/[address] Sanchez did perform an incision and drainage during this hospital stay. A dressing change was performed prior to discharge. DISCHARGE MEDICATIONS: Lantus 20 units nightly, this is a new medication Humalog 12 units with meals, this is a new medication Bactrim DS one twice a day for 7 days, this is a new medication as well Klonopin 0.5mg twice a day Hydrocodone 7.5 PO three times a day Gabapentin 100mg three times a day Metformin 1,000mg twice a day DISCHARGE DIET: ADA diet. He was instructed to monitor his blood glucose fasting in the morning , two hours after lunch, two hours after supper and prior to bedtime DISCHARGE ACTIVITY LEVEL: Increase activity as tolerated. FINAL DIAGNOSES: 1. Staph aureus abscess to the right parietal scalp, status post incision and drainage during hospital stay 2. Uncontrolled Diabetes Mellitus, type 2 with initiation of insulin during hospital stay 3. History of COPD 4. Emphysema 5. History of back fusion in 2002 6. History of osteoarthritis 7. History of prior abscesses to the neck and the head 8. 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 History of reported of marijuana, cocaine and methamphetamines with toxicology screen. Preliminary inpatient showing positive for amphetamines and methamphetamines. The send out test is pending. PLAN: 1. Monitor wound on head, keep dressing in place, If moderate drainage, pain occurs please call the doctor as soon as possible or return to the nearest emergency department. 2. He was instructed to bring his blood sugars to his next appointment the appointment would be on Sunday and to continue to check blood sugars before breakfast, after lunch, after supper and before bedtime. 3. He will get his dressing changed at the office on Sunday. Further orders and recommendation per Dr. Sanchez. TIME SPENT: GREATER THAN 30 MINUTES MTDD
== END 2018-09-23 17:10 | disposition home or self-care (01) | DRG 603 ==
LOC: MEDSURG A 23:40
PROVIDERS: ADMIT General Practice; ATTEND General Practice
DX: R51 Headache; F19.10 Other psychoactive substance abuse, uncomplicated; Z91.19 Patient's noncompliance with other medical treatment and regimen; M54.2 Cervicalgia; J43.9 Emphysema, unspecified; B95.8 Unspecified staphylococcus as the cause of diseases classified elsewhere; L02.811 Cutaneous abscess of head [any part, except face]; E11.65 Type 2 diabetes mellitus with hyperglycemia